=== PATIENT | female | born 1955 | race Caucasian/White ===

== ENCOUNTER 2016-11-07 09:20 | Day surgery (SDC) | payer MEDICARE, OTHER ==
[~2016-11-07 09:20] MED LIST: PROPOFOL INJ 200 MG/20 ML VIAL IV ONE
[2016-11-07] MEDS ORDERED: ACETAMINOPHEN 325 MG TABLET ONE (10:54)
[2016-11-07 11:02] VITALS: BP 110/67
--- NOTE | 2016-11-07 13:40 | Operative Report ---
Operative Report DATE OF SURGERY: 11/07/16 Operative Report: The risks, benefits and alternatives of the procedure including risks of bleeding, perforation requiring surgery are explained to the patient detail and informed consent was obtained. Patient was taken to the endoscopy suite and placed in the left, lateral decubital position. Timeout was called. Propofol medications administered. A rectal examination was done which did not reveal any masses, tears or fissures. An Olympus videoscope was inserted into the patient's rectum. The scope was then carefully guided all the way to the cecum. Cecum was identified by the usual anatomical landmarks of the ileocecal valve as well as the appendiceal office. Photodocumentation is obtained. Prep is good. The scope was then sequentially pulled back via the various segments of the colon including the ascending colon, hepatic flexure, transverse colon, splenic flexure, descending colon finding to the rectosigmoid portions of the colon. Retroflexion maneuver was performed. The risks benefits and alternatives of the procedure explained to the patient in detail and informed consent is obtained.A GIF Olympus video scope was inserted into the patient's mouth and hypopharynx, the esophagus is identified intubated and insufflated, the scope was then advanced through the esophagus stomach and duodenum, retroflexion maneuver is done, the esophagus stomach and first and second portions of the duodenum examined PREOPERATIVE DIAGNOSIS: Change of bowel habits. Chronic constipation rule out obstruction. Gastroesophageal reflux disease POSTOPERATIVE DIAGNOSIS: Redundant colon. Mild right side inflammation of the colon status post biopsy. Internal hemorrhoids. Gastritis status post biopsy rule out Helicobacter pylori OPERATION: Colonoscopy with biopsy. EGD with biopsy SURGEON: FIGUEROA GONSALES ANESTHESIA: LMAC TISSUE REMOVED OR ALTERED: As described above. COMPLICATIONS: None. ESTIMATED BLOOD LOSS: None. INTRAOPERATIVE FINDINGS: No obstruction noted. Promotility is likely the issue causing her chronic constipation. She appears to be doing better on Linzess PROCEDURE: Patient tolerated procedure well. No immediate postprocedure complications are noted. Patient discharged in good condition. Discharge date 11/07/2016. Discharge diet: Regular. Discharge activity: Regular. 2-3 week follow-up to discuss findings. Patient is instructed to call the office or proceed to the emergency room should there be any further problems or questions. We will wait on pathology.
== END 2016-11-07 11:05 | disposition home or self-care (01) ==
LOC: END 09:20
PROVIDERS: ATTEND Internal Medicine Gastroenterology
PROC: 0DB68ZX Excision of Stomach, Via Natural or Artificial Opening Endoscopic, Diagnostic (ICD-10-PCS; principal; 2016-11-07 11:00)
PROC: 0DBF8ZX Excision of Right Large Intestine, Via Natural or Artificial Opening Endoscopic, Diagnostic (ICD-10-PCS; 2016-11-07 11:00)
DX: K58.1 Irritable bowel syndrome with constipation (principal); K64.8 Other hemorrhoids; K29.50 Unspecified chronic gastritis without bleeding; K21.9 Gastro-esophageal reflux disease without esophagitis; M81.0 Age-related osteoporosis without current pathological fracture; K44.9 Diaphragmatic hernia without obstruction or gangrene; Z87.440 Personal history of urinary (tract) infections; Z79.899 Other long term (current) drug therapy
CPT/HCPCS: 43239; 45380; 88342 ×2; 88305 ×2; A9270; J2704; 810

== ENCOUNTER 2017-10-17 01:26 | Emergency (ER) | payer MEDICARE, OTHER ==
[2017-10-17 02:50] LABS: ABSOLUTE EOSINOPHILS # (AUTO) 0.1 10^3/uL (0.0-0.6); ABSOLUTE LYMPHOCYTES (AUTO) 0.9 10^3/uL (0.5-4.7); ABSOLUTE MONOCYTES (AUTO) 0.6 10^3/uL (0.1-1.4); ABSOLUTE NEUT (AUTO) 8.7 10^3/uL (1.7-8.2); BASOPHILS % (AUTO) 0.3 % (0-2); EOSINOPHILS % (AUTO) 0.6 % (0-6); HEMOGLOBIN 12.7 g/dL (12.0-15.5); LYMPHOCYTES % (AUTO) 8.4 % (13-45); MEAN CORPUSCULAR HEMOGLOBIN 31.7 pg (27.0-33.4); MEAN CORPUSCULAR HGB CONC 35.3 g/dL (32.0-36.0); MEAN CORPUSCULAR VOLUME 90 fl (80-97); MONOCYTES % (AUTO) 5.7 % (3-13); PLATELET COUNT 282 10^3/uL (150-450); RED BLOOD COUNT 4.01 10^6/uL (3.72-5.28); RED CELL DISTRIBUTION WIDTH 12.9 % (11.5-14.0); TOTAL CELLS COUNTED % (AUTO) 100 %; WHITE BLOOD COUNT 10.2 10^3/uL (4.0-10.5)
[2017-10-17 03:06] LABS: ALANINE AMINOTRANSFERASE 35 U/L (9-52); ALBUMIN 3.7 g/dL (3.5-5.0); ALKALINE PHOSPHATASE 100 U/L (38-126); ANION GAP 10 (5-19); ASPARTATE AMINO TRANSFERASE 31 U/L (14-36); BILIRUBIN,DIRECT 0.3 mg/dL (0.0-0.4); BILIRUBIN,TOTAL 0.4 mg/dL (0.2-1.3); BLOOD UREA NITROGEN 12 mg/dL (7-20); CALCIUM 8.9 mg/dL (8.4-10.2); CARBON DIOXIDE 25 mmol/L (22-30); CHLORIDE 102 mmol/L (98-107); GLUCOSE 104 mg/dL (75-110); POTASSIUM 4.2 mmol/L (3.6-5.0)
[2017-10-17] MEDS ORDERED: ACETAMINOPHEN 325 MG TABLET PO ONE (03:26)
[2017-10-17] MEDS ORDERED: METOCLOPRAMIDE HCL INJ/PF 10 MG/2 ML SDV IV ONE (03:26)
[2017-10-17] MEDS ORDERED: MECLIZINE HCL 25 MG TABLET PO ONE (03:27)
--- NOTE | 2017-10-17 03:29 | ER Document Report ---
ED General - General Chief Complaint: Nausea/Vomiting Stated Complaint: NAUSEA Time Seen by Provider: 10/17/17 03:15 Mode of Arrival: Medic Information source: Patient, Relative Notes: 62-year-old female presents emergency department with complaints of vertigo. Patient states that she was sleeping when she woke up she felt a spinning sensation. Patient has had this in the past. Patient states that she has Zofran and meclizine at home. Patient took some Zofran but was unable to keep the meclizine down. Patient states that the spinning is worse with movement. She denies any alleviating factors. She denies any vision changes, speech changes, numbness, tingling, weakness. Patient denies a history of any recent viral illness. She states that she has had some tinnitus intermittently over the last week. TRAVEL OUTSIDE OF THE [place] IN LAST 30 DAYS: No - HPI Onset: Just prior to arrival Onset/Duration: Sudden Quality of pain: No pain Pain Level: Denies Associated symptoms: Nausea, Vomiting Exacerbated by: Movement Relieved by: Denies Similar symptoms previously: Yes Recently seen / treated by doctor: No - Related Data Allergies/Adverse Reactions: amoxicillin [From Augmentin] Allergy (Verified 11/07/16 09:23) SHORTNESS OF BREATH, RASH ON HANDS cephalexin [From Keflex] Allergy (Verified 11/07/16 09:23) LIPS SWELL clavulanic acid [From Augmentin] Allergy (Verified 11/07/16 09:23) SHORTNESS OF BREATH, RASH ON HANDS codeine Allergy (Verified 11/07/16 09:23) AGRESSIVE BEHAVIOR meperidine [From Demerol] Allergy (Verified 11/07/16 09:23) WHELTS Penicillins Allergy (Verified 11/07/16 09:23) Anaphylaxis rosuvastatin [From Crestor] Allergy (Verified 11/07/16 09:23) Shortness of Breath tetracycline Allergy (Verified 11/07/16 09:23) LIPS,RASH BETA BLOCKERS Allergy (Uncoded 11/07/16 09:23) HYPOTENSION, DEPRESSION IVP DYE Allergy (Uncoded 11/07/16 09:23) Anaphylaxis Past Medical History - Social History Smoking Status: Current Some Day Smoker Family History: Reviewed & Not Pertinent - Past Medical History Cardiac Medical History: Denies: Hx Coronary Artery Disease, Hx Heart Attack, Hx Hypertension Pulmonary Medical History: Reports: Hx Pneumonia Denies: Hx Asthma, Hx Bronchitis, Hx COPD Neurological Medical History: Reports: Hx Seizures - FEBRILE @ 5 Y.O.. Denies: Hx Cerebrovascular Accident Musculoskeltal Medical History: Denies Hx Arthritis - Immunizations Hx Diphtheria, Pertussis, Tetanus Vaccination: Yes - 2013 Review of Systems - Review of Systems Constitutional: No symptoms reported EENT: Vertigo Cardiovascular: No symptoms reported Respiratory: No symptoms reported Gastrointestinal: Nausea, Vomiting Genitourinary: No symptoms reported Female Genitourinary: No symptoms reported Musculoskeletal: No symptoms reported Skin: No symptoms reported Hematologic/Lymphatic: No symptoms reported Neurological/Psychological: No symptoms reported -: Yes All other systems reviewed and negative Physical Exam - Vital signs Vitals: Temp Pulse Resp BP 97.1 F 72 20 106/61 10/17/17 02:00 10/17/17 02:00 10/17/17 02:00 10/17/17 02:00 Interpretation: Normal - Notes Notes: PHYSICAL EXAMINATION: GENERAL: Well-appearing, well-nourished and in no acute distress. HEAD: Atraumatic, normocephalic. EYES: Pupils equal round and reactive to light, extraocular movements intact, conjunctiva are normal. No nystagmus. ENT: Nares patent, oropharynx clear without exudates. Moist mucous membranes. NECK: Normal range of motion, supple without lymphadenopathy LUNGS: Breath sounds clear to auscultation bilaterally and equal. No wheezes rales or rhonchi. HEART: Regular rate and rhythm without murmurs ABDOMEN: Soft, nontender, nondistended abdomen. No guarding, no rebound. No masses appreciated. Female : deferred Musculoskeletal: Normal range of motion, no pitting or edema. No cyanosis. NEUROLOGICAL: Cranial nerves grossly intact. Normal speech. Normal sensory, motor exams. PSYCH: Normal mood, normal affect. SKIN: Warm, Dry, normal turgor, no rashes or lesions noted. Course - Re-evaluation Re-evalutation: 10/17/17 05:20 Vertigo worse with moving head from left to right. No nystagmus. No neuro deficits appreciated. Patient given Tylenol, meclizine, Reglan. On reevaluation , patient states that her vertigo has resolved. Patient is neurologically intact. Patient has no complaints at this time. I instructed the patient to follow-up with her primary care physician this week, to take [id number] medications as needed for symptom relief, and to return to the emergency department for any worsening symptoms. Patient is agreeable with plan of care. - Vital Signs Vital signs: Temp Pulse Resp BP Pulse Ox 97.1 F 72 20 106/61 10/17/17 02:00 10/17/17 02:00 10/17/17 02:00 10/17/17 02:00 - Laboratory Result Diagrams: 10/17/17 02:35 10/17/17 02:35 Laboratory results interpreted by me: 10/17/17 10/17/17 10/17/17 02:35 02:35 03:59 Seg Neutrophils % 85.0 H Lymphocytes % 8.4 L Absolute Neutrophils 8.7 H Total Protein 6.0 L Urine Ketones TRACE H Urine Blood SMALL H Ur Leukocyte Esterase TRACE H Discharge - Discharge Clinical Impression: Vertigo Condition: Stable Disposition: HOME, SELF-CARE Instructions: Vertigo ([facility]) Prescriptions: Meclizine HCl [Antivert 25 mg Tablet] 25 mg PO TID PRN #21 tablet PRN Reason: Ondansetron [Zofran Odt 4 mg Tablet] 1 tab PO Q4H PRN #15 tab.rapdis PRN Reason: For Nausea/Vomiting Referrals: SHOLA MITCHELL DO [Primary Care Provider] - Follow up as needed
[2017-10-17 04:15] LABS: APPEARANCE,URINE CLEAR; BILIRUBIN,URINE NEGATIVE (NEGATIVE); COLOR,URINE YELLOW; GLUCOSE, URINE NEGATIVE (NEGATIVE); KETONES,URINE TRACE mg/dL (NEGATIVE); LEUKOCYTE ESTERASE,URINE TRACE (NEGATIVE); NITRITE,URINE NEGATIVE (NEGATIVE); PROTEIN,URINE NEGATIVE (NEGATIVE); URINE SPECIFIC GRAVITY 1.008; UROBILINOGEN,URINE NEGATIVE mg/dL (<2.0)
[2017-10-17 05:41] VITALS: BP 110/66
== END 2017-10-17 05:41 | disposition home or self-care (01) ==
LOC: ER 01:26
DX: R42 Dizziness and giddiness (principal); R11.2 Nausea with vomiting, unspecified; H93.19 Tinnitus, unspecified ear; F17.200 Nicotine dependence, unspecified, uncomplicated; Z88.1 Allergy status to other antibiotic agents; Z88.5 Allergy status to narcotic agent; Z88.8 Allergy status to other drugs, medicaments and biological substances; Z87.892 Personal history of anaphylaxis; Z88.0 Allergy status to penicillin; Z91.041 Radiographic dye allergy status
CPT/HCPCS: 99284; 96374; 36415; 85025; 80053; 81001; A9270; J2765

== ENCOUNTER → 2018-03-19 | Outpatient (CLI) | payer MEDICARE, OTHER ==
--- NOTE | 2018-03-19 10:47 | WOMENS IMAGING REPORT ---
EXAM DESCRIPTION: BONE DENSITY HIP/SPINE COMPLETED DATE/TIME: 03/19/2018 10:23 am REASON FOR STUDY: N95.8 OTHER SPECIFIED MENOPAUSAL AND PERIMENOPAUSAL DISORDERS Z12.31 ENCNICOLER RAJ N MAMMOGRAM FOR MALIGNANT NEOPLASM OF PATRICIO M81.0 AGE-RELATED OSTEOPOROSIS W/O CURRENT PATHOLOGICAL FR AC N95.8 OTHER SPECIFIED MENOPAUSAL AND PERIMENOPAUSAL DISORDER COMPARISON: 01/17/2016 TECHNIQUE: Dual-Energy X-ray Absorptiometry (DEXA) of the AP Spine and Hip. LIMITATIONS: None. FINDINGS: LUMBAR SPINE: The bone mineral density (BMD) measured from L1-L4 in the AP projection correlates with a T-score of -3.7, which is osteoporosis as defined by the World Health Organization. +1.4% change since prior st udy. HIP: The bone mineral density (BMD) measured in the left hip correlates with a T-score of -2.9 in the femo ral neck, which is osteoporosis as defined by the World Health Organization. -8.3% change since prio r study. IMPRESSION: 1. LUMBAR SPINE: OSTEOPOROSIS. 2. HIP: OSTEOPOROSIS. COMMENT: The World Health Organization defines low BMD as follows: T-score: Normal: Greater than -1.0 Osteopenia: Between -1.0 and -2.5 Osteoporosis: Less than -2.5 without fractures Established osteoporosis: Less than -2.5 with fractures In general, you may wish to consider: Diagnosis Treatment Follow-up DEXA Normal BMD Prevention 2-3 years Osteopenia Prevention/Therapy 1-2 years Osteoporosis Therapy Yearly TECHNICAL DOCUMENTATION: JOB ID: [id number] [employer]- All Rights Reserved Reading location - IP/workstation name: [email or web address]
--- NOTE | 2018-03-20 16:26 | WOMENS IMAGING REPORT ---
EXAM DESCRIPTION: 3D SCREENING MAMMO BILAT COMPLETED DATE/TIME: 03/19/2018 10:23 am REASON FOR STUDY: Z12.31 SCREENING MAMMO Z12.31 ENCNTR SCREEN MAMMOGRAM FOR MALIGNANT NEOPLASM OF B RE M81.0 AGE-RELATED OSTEOPOROSIS W/O CURRENT PATHOLOGICAL FRAC N95.8 OTHER SPECIFIED MENOPAUSAL AN D PERIMENOPAUSAL DISORDER COMPARISON: 03/18/2016 TECHNIQUE: Standard craniocaudal and mediolateral oblique views of each breast recorded using digita l acquisition and breast tomosynthesis. LIMITATIONS: None. FINDINGS: No masses, calcifications or architectural distortion. No areas of suspicion. Read with the assistance of CAD. .[facility] - R2 Cenova Version 1.3 .[facility] - R2 Cenova Version 1.3 .[facility] - R2 Cenova Version 2.4 .[facility] - R2 Cenova Version 2.4 .[facility] - R2 Survey Director Version 9.2 IMPRESSION: NORMAL MAMMOGRAM. BIRADS 1. BREAST DENSITY: b. There are scattered areas of fibroglandular density. BIRAD: 1 NEGATIVE RECOMMENDATION: ROUTINE SCREENING Please continue yearly bilateral screening tomosynthesis/mammography March 2019 COMMENT: The patient has been notified of the results by letter per SA requirements. Additional no tification policies are in place for contacting patient with suspicious or incomplete findings. Quality ID #[id number]: The [employer] recommends an annual screening mammogram for women aged 40 years or over. This facility utilizes a reminder system to ensure that all patients receive reminder letters, and/or direct phone calls for appointments. This includes reminders for routine scr eening mammograms, diagnostic mammograms, or other Breast Imaging Interventions when appropriate. Th is patient will be placed in the appropriate reminder system. The [employer] (ACR) has developed recommendations for screening MRI of the breast s in certain patient populations, to be used in conjunction with mammography. Breast MRI surveillanc e may be appropriate for women with more than 20% lifetime risk of developing breast cancer as deter mined by genetic testing, significant family history of the disease, or history of mantle radiation f or Hodgkins Disease. ACR Practice Guidelines 2008. DBT Technology DBT is a type of tomographic mammography. With conventional mammography, overlapping breast tissue ma y make lesions difficult to detect, even with good compression. DBT uses an x-ray tube that rotates a round the breast, taking images at different angles. These images are then combined to create thin sl ices of the breast that the radiologist can view as a 3D reconstruction. The Hologic unit can perform full-field digital mammograms (2D imaging); or DBT (3D imaging); or both, in a combination mode that quickly performs both the mammogram and the tomosynthesis scan while the breast is still compressed. PQRS 6045F: Fluoroscopic imaging is not utilized for breast tomosynthesis. TECHNICAL DOCUMENTATION: FINDING NUMBER: (1) ASSESSMENT: (1) JOB ID: [id number] [employer]- All Rights Reserved Reading location - IP/workstation name: [email or web address]
== END ==
LOC: WI 09:05
PROVIDERS: ATTEND Student in an Organized Health Care Education/Training Program
DX: Z12.31 Encounter for screening mammogram for malignant neoplasm of breast (principal); N95.8 Other specified menopausal and perimenopausal disorders
CPT/HCPCS: 77063; 77067; 77080

== ENCOUNTER → 2018-06-28 | Outpatient (CLI) | payer MEDICARE, OTHER ==
--- NOTE | 2018-06-28 12:48 | RADIOLOGY REPORT (SQ) ---
EXAM DESCRIPTION: U/S ABDOMEN LIMITED W/O DOP COMPLETED DATE/TIME: 06/28/2018 9:39 am REASON FOR STUDY: EPIGASTRIC ABDOMINAL TENDERNESS;RIGHT UPPER QUADRA R10.816 EPIGASTRIC ABDOMINAL T ENDERNESS R10.811 RIGHT UPPER QUADRANT ABDOMINAL TENDERNESS R11.0 NAUSEA COMPARISON: None. TECHNIQUE: Dynamic and static grayscale images acquired of the abdomen and recorded on PACS. Additio nal selected color Doppler and spectral images recorded. LIMITATIONS: Limited visualization. Poor acoustical window FINDINGS: PANCREAS: No masses. Visualized pancreatic duct normal caliber. LIVER: Normal size Echo texture normal. No focal masses. LIVER VASCULATURE: Normal directional flow of the main portal vein and hepatic veins. GALLBLADDER: Surgically absent. ULTRASOUND-DETECTED HOOKS'S SIGN: Not applicable. INTRAHEPATIC DUCTS AND COMMON DUCT: CBD and intrahepatic ducts normal caliber. No filling defects. INFERIOR VENA CAVA: Normal flow. AORTA: No aneurysm. RIGHT KIDNEY: Normal size. Normal echogenicity. No solid or suspicious masses. No hydronephros is. No calcifications. PERITONEAL AND RIGHT PLEURAL SPACE: No ascites or effusions. OTHER: No other significant findings. IMPRESSION: GALLBLADDER ABSENT. OTHERWISE NORMAL RUQ US VISUALIZED TECHNICAL DOCUMENTATION: JOB ID: [id number] [email or web address]- All Rights Reserved Reading location - IP/workstation name: [email or web address]
== END ==
LOC: WI 08:52
PROVIDERS: ATTEND Internal Medicine Gastroenterology
DX: R10.816 Epigastric abdominal tenderness (principal); R10.811 Right upper quadrant abdominal tenderness; R11.0 Nausea
CPT/HCPCS: 76705

== ENCOUNTER → 2018-06-29 | Outpatient (CLI) | payer MEDICARE, OTHER | LOC: OD 11:38 | PROVIDERS: ATTEND Otolaryngology | DX: J30.2 Other seasonal allergic rhinitis (principal) | CPT/HCPCS: 36415; 82785; 86003 ==

== ENCOUNTER → 2018-07-25 | Outpatient (CLI) | payer MEDICARE, OTHER ==
--- NOTE | 2018-07-25 14:20 | RADIOLOGY REPORT (SQ) ---
EXAM DESCRIPTION: CT ABD/PELVIS ORAL ONLY COMPLETED DATE/TIME: 07/25/2018 1:07 pm REASON FOR STUDY: ABD TENDERNESS; RUQ (R10.811) R10.811 RIGHT UPPER QUADRANT ABDOMINAL TENDERNESS M 54.2 CERVICALGIA R42 DIZZINESS AND GIDDINESS COMPARISON: None. TECHNIQUE: CT scan of the abdomen and pelvis performed without intravenous contrast. Oral contrast was given. Images reviewed with lung, soft tissue, and bone windows. Reconstructed coronal and sagitt al MPR images reviewed. All images stored on PACS. All CT scanners at this facility use dose modulation, iterative reconstruction, and/or weight based d osing when appropriate to reduce radiation dose to as low as reasonably achievable (ALARA). [facility]: Dose Right [facility]: CareDose [facility]: Dose Right [facility]: Teradose 4D [facility]: [employer] RADIATION DOSE: CT Rad equipment meets quality standard of care and radiation dose reduction techniq ues were employed. CTDIvol: 4.1 mGy. DLP: 201 mGy-cm.mGy. LIMITATIONS: None. FINDINGS: LOWER CHEST: No significant findings. No nodules or infiltrates. NON-CONTRASTED LIVER, SPLEEN, ADRENALS: Evaluation limited by lack of IV contrast. No identified sign ificant masses. Findings suggestive of left hepatic lobe biliary ductal dilatation. PANCREAS: No masses. No peripancreatic inflammatory changes. GALLBLADDER: Surgically absent. RIGHT KIDNEY AND URETER: No suspicious masses. Assessment limited by lack of IV contrast. No signif icant calcifications. No hydronephrosis or hydroureter. LEFT KIDNEY AND URETER: No suspicious masses. Assessment limited by lack of IV contrast. No signifi cant calcifications. No hydronephrosis or hydroureter. AORTA AND RETROPERITONEUM: No aneurysm. No retroperitoneal masses or adenopathy. BOWEL AND PERITONEAL CAVITY: No focal bowel wall thickening. No evidence of intestinal obstruction. Stool throughout the colon. APPENDIX: Not visualized. . PELVIS, BLADDER, AND ABDOMINAL WALL:No abnormal masses. No free fluid. Bladder normal. Status post h ysterectomy. BONES: Decreased mineralization. No acute bony abnormality. OTHER: No other significant finding. IMPRESSION: 1. Findings suggestive of left hepatic lobe biliary ductal dilatation although evaluati on limited secondary to lack of intravenous contrast. Recommend correlation with LFTs. Ultrasound c ould be considered for further evaluation. 2. No additional evidence of acute intra-abdominal/pelvic process. COMMENT: Quality ID # [id number]: Final reports with documentation of one or more dose reduction techniques (e.g., Automated exposure control, adjustment of the mA and/or kV according to patient size, use of iterative reconstruction technique) TECHNICAL DOCUMENTATION: JOB ID: [id number] [employer]- All Rights Reserved Reading location - IP/workstation name: [email or web address]
--- NOTE | 2018-07-25 16:16 | RADIOLOGY REPORT (SQ) ---
EXAM DESCRIPTION: MRI CERVICAL SPINE WITHOUT COMPLETED DATE/TIME: 07/25/2018 1:51 pm REASON FOR STUDY: DIZZINESS AND GIDDINESS (R42), CERVICALGIA (M54.2) R10.811 RIGHT UPPER QUADRANT A BDOMINAL TENDERNESS M54.2 CERVICALGIA R42 DIZZINESS AND GIDDINESS COMPARISON: None. TECHNIQUE: Sagittal and Axial imaging includes T1, T2, STIR and gradient echo sequences. LIMITATIONS: None. FINDINGS: ALIGNMENT: Normal. VERTEBRAE: Intact. BONE MARROW: Normal. No marrow replacement or reactive changes. DISCS: Normal. No significant abnormal signal or loss of height. HARDWARE: None in the spine. CORD AND BASE OF BRAIN: Normal in size and signal intensity. SOFT TISSUES: No soft tissue masses. C1-C2: No significant spinal stenosis. C2-C3: No significant spinal stenosis or exit foraminal stenosis. C3-C4: No significant spinal stenosis or exit foraminal stenosis. C4-C5: No significant spinal stenosis or exit foraminal stenosis. C5-C6: No significant spinal stenosis or exit foraminal stenosis. C6-C7: There is a shallow slightly eccentric to the left central disc/ osteophyte complex. This slig htly narrows the anterior CSF space but does not deform the spinal cord. There is no central canal o r foraminal stenosis. C7-T1: No significant spinal stenosis or exit foraminal stenosis. UPPER THORACIC: Incompletely imaged. No significant spinal stenosis or exit foraminal stenosis. OTHER: No other significant finding. IMPRESSION: There is a shallow disc/osteophyte complex at C6-7 with no central canal or foraminal st enosis. No other significant findings. TECHNICAL DOCUMENTATION: JOB ID: [id number] [employer]- All Rights Reserved Reading location - IP/workstation name: [email or web address]
--- NOTE | 2018-07-26 08:41 | RADIOLOGY REPORT (SQ) ---
EXAM DESCRIPTION: CT SINUSES FOR ENT COMPLETED DATE/TIME: 07/25/2018 1:07 pm REASON FOR STUDY: DEVIATED SEPTUM (J34.2) R10.811 RIGHT UPPER QUADRANT ABDOMINAL TENDERNESS M54.2 CERVICALGIA R42 DIZZINESS AND GIDDINESS COMPARISON: None. TECHNIQUE: Noncontrast scanning through the paranasal sinuses using bone algorithm. Reconstructed MPR images reviewed. All images stored on PACS. Images acquired for image guided surgery. All CT scanners at this facility use dose modulation, iterative reconstruction, and/or weight based d osing when appropriate to reduce radiation dose to as low as reasonably achievable (ALARA). [facility]: Dose Right [facility]: CareDose [facility]: Dose Right [facility]: Teradose 4D [facility]: [employer] RADIATION DOSE: 45.8 mGy. FINDINGS: NASAL PASSAGES: Clear. No polyps or masses. OSTEOMEATAL UNITS AND NASOFRONTAL DUCTS: Patent. Small bilateral agger nasi and Reggie cells. MAXILLARY SINUSES: Well-pneumatized and clear. Maxillary sinus outlets are patent. ETHMOID SINUSES: Well-pneumatized and clear. SPHENOID SINUSES: Well-pneumatized and clear. No sphenoethmoid air cells. Right pneumatized pterygoi d recess. No pneumatized dorsal sella. FRONTAL SINUSES: Well-pneumatized and clear. Partial pneumatization of the roof of the left orbit on coronal reconstruction image 88 MASTOID AIR CELLS: Clear. ORBITS: Normal and symmetrical. NASAL SEPTUM: Midline. No nasal septal spurs. TEMPOROMANDIBULAR JOINTS: Normal. TURBINATES: Bilateral pneumatized middle turbinates. MUCOPERIOSTEAL THICKENING: No. MUCOCELE: No. OTHER: No other significant findings. IMPRESSION: NO EVIDENCE OF ACUTE SINUSITIS. TECHNICAL DOCUMENTATION: JOB ID: [id number] Quality ID # [id number]: Final reports with documentation of one or more dose reduction techniques (e.g., Au tomated exposure control, adjustment of the mA and/or kV according to patient size, use of iterative reconstruction technique) 2010 [employer]- All Rights Reserved Reading location - IP/workstation name: [email or web address]-
== END ==
LOC: RAD 12:37
PROVIDERS: ATTEND Internal Medicine Gastroenterology
DX: M54.2 Cervicalgia (principal); R10.811 Right upper quadrant abdominal tenderness; R10.816 Epigastric abdominal tenderness; R94.5 Abnormal results of liver function studies; R42 Dizziness and giddiness
CPT/HCPCS: 70486; 72141; 74176

== ENCOUNTER → 2018-09-27 | Outpatient (CLI) | payer MEDICARE, OTHER ==
--- NOTE | 2018-09-27 13:37 | RADIOLOGY REPORT (SQ) ---
EXAM DESCRIPTION: MRI ABDOMEN WITHOUT COMPLETED DATE/TIME: 09/27/2018 10:52 am REASON FOR STUDY: K87 DISORD OF GB, BILIARY TRAC AND PANCREAS IN DIS CLASSD [id number] K87 DISORD OF GB , BILIARY TRAC AND PANCREAS IN DIS CLASSD EL R93.2 ABNORMAL FINDINGS ON DX IMAGING OF LIVER AND BILI EDWIN T COMPARISON: CT abdomen pelvis 07/25/2018 Abdominal ultrasound 06/28/2018 TECHNIQUE: Noncontrast MRCP. Source and MIP images reviewed. LIMITATIONS: None. FINDINGS: GALLBLADDER: Surgically absent INTRAHEPATIC DUCTS: Nondilated. EXTRAHEPATIC DUCTS: Common duct is normal caliber, about 6 mm in diameter. This is similar compared to prior ultrasound 06/28/2018 and exam 07/15/2018. No dilatation of the pancreatic duct. No ductal fi lling defects noted. PANCREAS: Generally homogeneous, no gross mass or significant signal alteration. No surrounding infl ammatory changes or fluid. Pancreatic duct is normal. LIVER, SPLEEN, KIDNEYS, ADRENALS: No significant abnormality. VESSELS: No evidence of aneurysm. Grossly appropriate flow voids in the major vascular structures. LUNG BASES: Grossly clear. OTHER: No other significant finding. IMPRESSION: Post cholecystectomy. No intrahepatic or extrahepatic biliary ductal dilatation. No ductal filling defects worrisome for r etained stone. No pancreatic ductal dilatation or peripancreatic inflammatory change. TECHNICAL DOCUMENTATION: JOB ID: [id number] [employer]- All Rights Reserved Reading location - IP/workstation name: [email or web address]
== END ==
LOC: RAD 09:52
PROVIDERS: ATTEND Internal Medicine Gastroenterology
DX: K87 Disorders of gallbladder, biliary tract and pancreas in diseases classified elsewhere (principal); R93.2 Abnormal findings on diagnostic imaging of liver and biliary tract
CPT/HCPCS: 74181

== ENCOUNTER → 2019-03-28 | Outpatient (CLI) | payer MEDICARE, OTHER ==
--- NOTE | 2019-03-28 17:53 | WOMENS IMAGING REPORT ---
EXAM DESCRIPTION: 3D SCREENING MAMMO BILAT COMPLETED DATE/TIME: 03/28/2019 9:25 am REASON FOR STUDY: Z12.31 SCREENING MAMMO Z12.31 ENCNTR SCREEN MAMMOGRAM FOR MALIGNANT NEOPLASM OF B RE COMPARISON: 2015, 2017 EXAM PARAMETERS: Views: Standard craniocaudal and mediolateral oblique views of each breast recorded using digital acquisition and breast tomosynthesis. Read with the assistance of CAD. .[facility] - R2 Risk Control Officer Version 9.2 LIMITATIONS: None. FINDINGS: No suspicious masses, suspicious calcifications or architectural distortion. No areas of c oncern. IMPRESSION: NEGATIVE MAMMOGRAM. BIRADS 1. BREAST DENSITY: b. There are scattered areas of fibroglandular density. BIRAD: ASSESSMENT: 1 NEGATIVE RECOMMENDATION: ROUTINE SCREENING Please continue yearly bilateral screening mammography/tomosynthesis in March 2020. COMMENT: The patient has been notified of the results by letter per [place] requirements. Additional no tification policies are in place for contacting patient with suspicious or incomplete findings. Quality ID #[id number]: The [employer] recommends an annual screening mammogram for women aged 40 years or over. This facility utilizes a reminder system to ensure that all patients receive reminder letters, and/or direct phone calls for appointments. This includes reminders for routine scr eening mammograms, diagnostic mammograms, or other Breast Imaging Interventions when appropriate. Th is patient will be placed in the appropriate reminder system. TECHNICAL DOCUMENTATION: FINDING NUMBER: (1) ASSESSMENT: (1) JOB ID: [id number] [employer]- All Rights Reserved Reading location - IP/workstation name: [email or web address]
== END ==
LOC: WI 08:50
PROVIDERS: ATTEND Nurse Practitioner Family
DX: Z12.31 Encounter for screening mammogram for malignant neoplasm of breast (principal)
CPT/HCPCS: 77063; 77067

== ENCOUNTER 2019-04-14 10:38 | Emergency (ER) | payer MEDICARE, OTHER ==
[2019-04-14] MEDS ORDERED: IBUPROFEN 600 MG TABLET PO ONE (11:45)
[2019-04-14] MEDS ORDERED: HYDROCODONE/ACETAMINOPHEN 5-325 MG TABLET PO ONE ×2 (11:45→13:49)
--- NOTE | 2019-04-14 11:49 | ER Document Report ---
ED Medical Screen (RME) - General Chief Complaint: Leg Injury Stated Complaint: FALL/LEG INJURY Time Seen by Provider: 04/14/19 11:38 Primary Care Provider: YOLANDA CAMPUZANO FNP-C [Primary Care Provider] - Follow up as needed Notes: Patient is a 63-year-old female who presents to the emergency department with 2 complaints. Her first complaint is that she fell yesterday and has not been able to bear weight since then. She took her pain medicine at 3:00 this morning, but has had little relief of her symptoms. Patient also has had a cough since yesterday. She states that she thinks she has the flu. Exam: Very tender to the right hip, right knee, right ankle, and right foot. I have greeted and performed a rapid initial assessment of this patient. A comprehensive ED assessment and evaluation of the patient, analysis of test results and completion of medical decision making process will be conducted by an additional ED providers. TRAVEL OUTSIDE OF THE [place] IN LAST 30 DAYS: No - Related Data Allergies/Adverse Reactions: amoxicillin [From Augmentin] Allergy (Verified 05/30/18 13:16) SHORTNESS OF BREATH, RASH ON HANDS cephalexin [From Keflex] Allergy (Verified 05/30/18 13:16) LIPS SWELL clavulanic acid [From Augmentin] Allergy (Verified 05/30/18 13:16) SHORTNESS OF BREATH, RASH ON HANDS codeine Allergy (Verified 05/30/18 13:16) AGRESSIVE BEHAVIOR meperidine [From Demerol] Allergy (Verified 05/30/18 13:16) WHELTS Penicillins Allergy (Verified 05/30/18 13:16) Anaphylaxis rosuvastatin [From Crestor] Allergy (Verified 05/30/18 13:16) Shortness of Breath Sulfa (Sulfonamide Antibiotics) Allergy (Verified 04/14/19 11:47) Lips swelled tetracycline Allergy (Verified 05/30/18 13:16) LIPS,RASH BETA BLOCKERS Allergy (Uncoded 05/30/18 13:16) HYPOTENSION, DEPRESSION IVP DYE Allergy (Uncoded 05/30/18 13:16) Anaphylaxis Past Medical History - Past Medical History Cardiac Medical History: Denies: Hx Coronary Artery Disease, Hx Heart Attack, Hx Hypertension Pulmonary Medical History: Reports: Hx Pneumonia - AGE 7 Denies: Hx Asthma, Hx Bronchitis, Hx COPD Neurological Medical History: Denies: Hx Cerebrovascular Accident, Hx Seizures Renal/ Medical History: Denies: Hx Peritoneal Dialysis Musculoskeltal Medical History: 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
[2019-04-14 12:27] LABS: A TYPE INFLUENZA AG NEGATIVE (NEGATIVE); B INFLUENZA AG NEGATIVE (NEGATIVE)
--- NOTE | 2019-04-14 13:29 | RADIOLOGY REPORT (SQ) ---
EXAM DESCRIPTION: ANKLE RIGHT COMPLETE COMPLETED DATE/TIME: 04/14/2019 12:34 pm REASON FOR STUDY: fall/pain COMPARISON: Right foot three views same date NUMBER OF VIEWS: Three views. TECHNIQUE: AP, lateral, and oblique radiographic images acquired of the right ankle. LIMITATIONS: None. FINDINGS: MINERALIZATION: Normal. BONES: No acute fracture or dislocation. No worrisome bone lesions. JOINTS: No effusions. SOFT TISSUES: No soft tissue swelling. No foreign body. OTHER: No other significant finding. IMPRESSION: NEGATIVE STUDY OF THE RIGHT ANKLE. NO RADIOGRAPHIC EVIDENCE OF ACUTE INJURY. TECHNICAL DOCUMENTATION: JOB ID: [id number] [employer]- All Rights Reserved Reading location - IP/workstation name: [email or web address]
--- NOTE | 2019-04-14 13:30 | RADIOLOGY REPORT (SQ) ---
EXAM DESCRIPTION: FOOT RIGHT COMPLETE COMPLETED DATE/TIME: 04/14/2019 12:34 pm REASON FOR STUDY: fall/pain COMPARISON: Right ankle three views same date NUMBER OF VIEWS: Three views. TECHNIQUE: AP, lateral and oblique radiographic images acquired of the right foot. LIMITATIONS: None. FINDINGS: MINERALIZATION: Normal. BONES: No acute fracture or dislocation. No worrisome bone lesions. Small dorsal calcaneal spur JOINTS: No effusions. SOFT TISSUES: No soft tissue swelling. No foreign body. OTHER: No other significant finding. IMPRESSION: NEGATIVE STUDY OF THE RIGHT FOOT. NO RADIOGRAPHIC EVIDENCE OF ACUTE INJURY. TECHNICAL DOCUMENTATION: JOB ID: [id number] [employer]- All Rights Reserved Reading location - IP/workstation name: [email or web address]
--- NOTE | 2019-04-14 13:31 | RADIOLOGY REPORT (SQ) ---
EXAM DESCRIPTION: HIP RIGHT AP/LATERAL COMPLETED DATE/TIME: 04/14/2019 12:34 pm REASON FOR STUDY: fall/pain COMPARISON: None. NUMBER OF VIEWS: Two views. TECHNIQUE: AP pelvis and additional frog-leg view of the right hip. LIMITATIONS: Nonstandard radiographic positioning right frog-leg hip view FINDINGS: MINERALIZATION: Normal. RIGHT HIP: No fracture or dislocation. No worrisome bone lesions. LEFT HIP: No fracture or dislocation. No worrisome bone lesions. PUBIS AND ISCHIUM: No fracture. PELVIS: No fracture. SACRUM: No fracture or dislocation. No worrisome bone lesions. LOWER LUMBAR SPINE: No fracture or dislocation. No worrisome bone lesions. No significant disc disea se. SOFT TISSUES: No findings. OTHER: No other significant finding. IMPRESSION: NEGATIVE STUDY OF THE RIGHT HIP. NO RADIOGRAPHIC EVIDENCE OF ACUTE INJURY. COMMENT: The patient is unable to bear weight consider CT follow-up TECHNICAL DOCUMENTATION: JOB ID: [id number] [employer]- All Rights Reserved Reading location - IP/workstation name: [email or web address]
--- NOTE | 2019-04-14 13:34 | RADIOLOGY REPORT (SQ) ---
EXAM DESCRIPTION: KNEE RIGHT 4 VIEWS COMPLETED DATE/TIME: 04/14/2019 12:34 pm REASON FOR STUDY: fall/pain COMPARISON: None. NUMBER OF VIEWS: Four views. TECHNIQUE: AP, lateral, and both oblique radiographic images acquired of the right knee. LIMITATIONS: None. FINDINGS: MINERALIZATION: Normal. BONES: No acute fracture or dislocation. No worrisome bone lesions. JOINT: Large suprapatellar knee joint effusion. SOFT TISSUES: No soft tissue swelling. No radio-opaque foreign body. OTHER: No other significant finding. IMPRESSION: Large suprapatellar right knee joint effusion TECHNICAL DOCUMENTATION: JOB ID: [id number] [employer]- All Rights Reserved Reading location - IP/workstation name: [email or web address]
[2019-04-14] MEDS ORDERED: KETOROLAC TROMETHAMINE 60 MG/2 ML SDV IM ONE (13:49)
--- NOTE | 2019-04-14 14:00 | ER Document Report ---
ED Extremity Problem, Lower - General Chief Complaint: Fall Stated Complaint: FALL/LEG INJURY Time Seen by Provider: 04/14/19 11:38 Primary Care Provider: YOLANDA CAMPUZANO FNP-C [NO LOCAL MD] - Follow up as needed TRAVEL OUTSIDE OF THE [place] IN LAST 30 DAYS: No - HPI Notes: Patient presents with right knee pain. Patient states that she tripped over a bedspread last night and landed on her right side. She complains of severe pain in the right knee as well as the right ankle and right hip. This pain is worse with movement and better with rest. It does radiate up and down the right leg. It is severe and constant. It is a throbbing sharp pain. She denies any loss of consciousness. - Related Data Allergies/Adverse Reactions: amoxicillin [From Augmentin] Allergy (Verified 05/30/18 13:16) SHORTNESS OF BREATH, RASH ON HANDS cephalexin [From Keflex] Allergy (Verified 05/30/18 13:16) LIPS SWELL clavulanic acid [From Augmentin] Allergy (Verified 05/30/18 13:16) SHORTNESS OF BREATH, RASH ON HANDS codeine Allergy (Verified 05/30/18 13:16) AGRESSIVE BEHAVIOR meperidine [From Demerol] Allergy (Verified 05/30/18 13:16) WHELTS Penicillins Allergy (Verified 05/30/18 13:16) Anaphylaxis rosuvastatin [From Crestor] Allergy (Verified 05/30/18 13:16) Shortness of Breath Sulfa (Sulfonamide Antibiotics) Allergy (Verified 04/14/19 11:47) Lips swelled tetracycline Allergy (Verified 05/30/18 13:16) LIPS,RASH BETA BLOCKERS Allergy (Uncoded 05/30/18 13:16) HYPOTENSION, DEPRESSION IVP DYE Allergy (Uncoded 05/30/18 13:16) Anaphylaxis Home Medications: Patient has list with her Past Medical History - General Information source: Patient - Social History Smoking Status: Current Every Day Smoker Frequency of alcohol use: None Drug Abuse: None Family History: Reviewed & Not Pertinent Patient has suicidal ideation: No Patient has homicidal ideation: No - Past Medical History Cardiac Medical History: Denies: Hx Coronary Artery Disease, Hx Heart Attack, Hx Hypertension Pulmonary Medical History: Reports: Hx Pneumonia - AGE 7 Denies: Hx Asthma, Hx Bronchitis, Hx COPD Neurological Medical History: Denies: Hx Cerebrovascular Accident, Hx Seizures Renal/ Medical History: Denies: Hx Peritoneal Dialysis GI Medical History: Reports: Hx Gastroesophageal Reflux Disease, Hx Hiatal Hernia Musculoskeletal Medical History: Reports Hx Arthritis - RIGHT KNEE, BILATERAL KNUCKLES Past Surgical History: Reports: Hx Appendectomy, Hx Breast Surgery - augmentation, Hx Cholecystectomy, Hx Hysterectomy, Hx Vascular Surgery - vein ablation - Immunizations Hx Diphtheria, Pertussis, Tetanus Vaccination: Yes Review of Systems - Review of Systems Constitutional: denies: Chills, Fever Cardiovascular: denies: Chest pain, Palpitations Respiratory: denies: Cough, Short of breath -: Yes All other systems reviewed and negative Physical Exam - Vital signs Vitals: Temp Pulse Resp BP Pulse Ox 99.1 F 103 H 16 112/77 97 04/14/19 10:54 04/14/19 10:54 04/14/19 10:54 04/14/19 10:54 04/14/19 10:54 Interpretation: Normal - General General appearance: Appears well, Alert - HEENT Head: Normocephalic, Atraumatic Eyes: Normal Pupils: PERRL - Respiratory Respiratory status: No respiratory distress Chest status: Nontender Breath sounds: Normal Chest palpation: Normal - Cardiovascular Rhythm: Regular Heart sounds: Normal auscultation Murmur: No - Abdominal Inspection: Normal Distension: No distension Bowel sounds: Normal Tenderness: Nontender Organomegaly: No organomegaly - Back Back: Normal, Nontender - Extremities General upper extremity: Normal inspection, Nontender, Normal color, Normal ROM, Normal temperature General lower extremity: Other - Patient has a significantly large effusion of the right knee however it is not tense. Her right knee is diffusely tender to palpation. Dorsalis pedis pulse on the right is 2+. She has no obvious neurological deficits on the right lower extremity. She does have some significant adjacent swelling to the knee joint as well. There is no significant warmth or color change. Patient's right ankle has unremarkable inspection. However it is diffusely tender to palpation. Patient is unable to bear weight at this time.. No: Isreal's sign - Neurological Neuro grossly intact: Yes Cognition: Normal Orientation: AAOx4 [place] Coma Scale Eye Opening: Spontaneous [place] Coma Scale Verbal: Oriented [place] Coma Scale Motor: Obeys Commands [place] Coma Scale Total: 15 Speech: Normal Motor strength normal: LUE, RUE, LLE, RLE Sensory: Normal - Psychological Associated symptoms: Normal affect, Normal mood - Skin Skin Temperature: Warm Skin Moisture: Dry Skin Color: Normal Course - Vital Signs Vital signs: Temp Pulse Resp BP Pulse Ox 99.1 F 103 H 16 112/77 97 04/14/19 10:54 04/14/19 10:54 04/14/19 10:54 04/14/19 10:54 04/14/19 10:54 - Diagnostic Test Radiology reviewed: Image reviewed, Reports reviewed Procedures - Immobilization Right Knee Time completed: 13:57 Pre-Proc Neuro Vasc Exam: Normal Immobilizer type: Knee immobilizer Performed by: RN Post-Proc Neuro Vasc Exam: Normal Alignment checked and good: Yes Discharge - Discharge Clinical Impression: Acute internal derangement of right knee Knee contusion Qualifiers: Encounter type: initial encounter Laterality: right Qualified Code(s): S80.01XA - Contusion of right knee, initial encounter Condition: Stable Disposition: HOME, SELF-CARE Instructions: Suspected Internal Knee Injury ([facility]), Knee Effusion ([facility]), Knee Immobilizing Splint ([facility]) Additional Instructions: Please call Dr. Snow as soon as possible to arrange follow-up Prescriptions: Oxycodone HCl/Acetaminophen [Percocet 5-325 mg Tablet] 1 - 2 tab PO Q4H PRN 3 Days #15 tablet PRN Reason: Forms: Return to Work Referrals: BURT SNOW JR, DO [ACTIVE PROVISIONAL STAFF] - Follow up in 3-5 days
[2019-04-14 14:19] VITALS: BP 100/65
== END 2019-04-14 14:29 | disposition home or self-care (01) ==
LOC: ER 10:38
DX: S80.01XA Contusion of right knee, initial encounter (principal); M23.91 Unspecified internal derangement of right knee; W01.0XXA Fall on same level from slipping, tripping and stumbling without subsequent striking against object, initial encounter; F17.200 Nicotine dependence, unspecified, uncomplicated; Z88.0 Allergy status to penicillin; Z88.6 Allergy status to analgesic agent; Z88.2 Allergy status to sulfonamides; Z91.041 Radiographic dye allergy status; Z90.49 Acquired absence of other specified parts of digestive tract; Z90.710 Acquired absence of both cervix and uterus
CPT/HCPCS: 99283; 96372; 87804; 73610; 73630; 73502; 73564; L1830; J1885; A9270

== ENCOUNTER 2019-07-27 16:35 | Emergency (ER) | payer MEDICARE, OTHER ==
--- NOTE | 2019-07-27 16:52 | ER Document Report ---
ED Medical Screen (RME) - General Chief Complaint: Headache Stated Complaint: HEADACHE,VOMITING Time Seen by Provider: 07/27/19 16:50 Mode of Arrival: Ambulatory Information source: Patient Notes: 64-year-old female presented to ED for complaint of severe headache with nausea and vomiting since 7 AM this morning. She states last night she picked up a container and put it up on a shelf and this morning she woke up with pain in her neck head back with nausea and vomiting cannot keep anything down. She is alert oriented respirations regular nonlabored. She states she does have a history of PTSD, anxiety, panic attacks, elevated cholesterol, and migraines a long time ago. She states she has not had any migraines since she had a hysterectomy. She also has a history of cholecystectomy appendectomy and vein stripping. She states she is just getting over a UTI where she took antibiotics. She states she does use vapor cigarettes but does not smoke regular cigarettes. She lives alone with her family. She states her daughter brought her to the emergency room. I have greeted and performed a rapid initial assessment of this patient. A comprehensive ED assessment and evaluation of the patient, analysis of test results and completion of medical decision making process will be conducted by an additional ED providers. TRAVEL OUTSIDE OF THE [place] IN LAST 30 DAYS: No - Related Data Allergies/Adverse Reactions: amoxicillin [From Augmentin] Allergy (Verified 05/30/18 13:16) SHORTNESS OF BREATH, RASH ON HANDS cephalexin [From Keflex] Allergy (Verified 05/30/18 13:16) LIPS SWELL clavulanic acid [From Augmentin] Allergy (Verified 05/30/18 13:16) SHORTNESS OF BREATH, RASH ON HANDS codeine Allergy (Verified 05/30/18 13:16) AGRESSIVE BEHAVIOR meperidine [From Demerol] Allergy (Verified 05/30/18 13:16) WHELTS Penicillins Allergy (Verified 05/30/18 13:16) Anaphylaxis rosuvastatin [From Crestor] Allergy (Verified 05/30/18 13:16) Shortness of Breath Sulfa (Sulfonamide Antibiotics) Allergy (Verified 04/14/19 11:47) Lips swelled tetracycline Allergy (Verified 05/30/18 13:16) LIPS,RASH BETA BLOCKERS Allergy (Uncoded 05/30/18 13:16) HYPOTENSION, DEPRESSION IVP DYE Allergy (Uncoded 05/30/18 13:16) Anaphylaxis Past Medical History - Past Medical History Cardiac Medical History: Denies: Hx Coronary Artery Disease, Hx Heart Attack, Hx Hypertension Pulmonary Medical History: Reports: Hx Pneumonia - AGE 7 Denies: Hx Asthma, Hx Bronchitis, Hx COPD Neurological Medical History: Denies: Hx Cerebrovascular Accident, Hx Seizures Renal/ Medical History: Denies: Hx Peritoneal Dialysis GI Medical History: Reports: Hx Gastroesophageal Reflux Disease, Hx Hiatal Hernia Musculoskeltal Medical History: Reports Hx Arthritis - RIGHT KNEE, BILATERAL KNUCKLES Past Surgical History: Reports: Hx Appendectomy, Hx Breast Surgery - augmentation, Hx Cholecystectomy, Hx Hysterectomy, Hx Vascular Surgery - vein ablation - Immunizations Hx Diphtheria, Pertussis, Tetanus Vaccination: Yes Physical Exam - Vital signs Vitals: Temp Pulse Resp BP Pulse Ox 97.7 F 78 18 135/72 H 99 07/27/19 16:37 07/27/19 16:37 07/27/19 16:37 07/27/19 16:37 07/27/19 16:37 Course - Vital Signs Vital signs: Temp Pulse Resp BP Pulse Ox 97.7 F 78 18 135/72 H 99 07/27/19 16:37 07/27/19 16:37 07/27/19 16:37 07/27/19 16:37 07/27/19 16:37
[2019-07-27] MEDS ORDERED: NORMAL SALINE 1000 ML 1,000 ML IV ONE ×2 (16:53→20:12)
[2019-07-27 18:04] LABS: ABSOLUTE EOSINOPHILS # (AUTO) 0.1 10^3/uL (0.0-0.6); ABSOLUTE LYMPHOCYTES (AUTO) 0.9 10^3/uL (0.5-4.7); ABSOLUTE MONOCYTES (AUTO) 0.4 10^3/uL (0.1-1.4); ABSOLUTE NEUT (AUTO) 2.8 10^3/uL (1.7-8.2); BASOPHILS % (AUTO) 0.4 % (0-2); EOSINOPHILS % (AUTO) 1.3 % (0-6); HEMATOCRIT 36.8 % (36.0-47.0); HEMOGLOBIN 12.8 g/dL (12.0-15.5); LYMPHOCYTES % (AUTO) 20.8 % (13-45); MEAN CORPUSCULAR HEMOGLOBIN 30.7 pg (27.0-33.4); MEAN CORPUSCULAR HGB CONC 34.8 g/dL (32.0-36.0); MEAN CORPUSCULAR VOLUME 88 fl (80-97); MONOCYTES % (AUTO) 9.6 % (3-13); PLATELET COUNT 251 10^3/uL (150-450); RED BLOOD COUNT 4.16 10^6/uL (3.72-5.28); SEGMENTED NEUTROPHILS % (AUTO) 67.9 % (42-78); TOTAL CELLS COUNTED % (AUTO) 100 %; WHITE BLOOD COUNT 4.1 10^3/uL (4.0-10.5)
[2019-07-27 18:11] LABS: INTERNATIONAL RATION (INR) 0.97; PROTHROMBIN TIME 12.9 SEC (11.4-15.4)
[2019-07-27 18:12] LABS: PARTIAL THROMBOPLASTIN TIME 35.5 SEC (23.5-35.8)
[2019-07-27] MEDS ORDERED: ONDANSETRON HCL INJ/PF 4 MG/2 ML SDV IV ONE (18:18)
[2019-07-27 18:27] LABS: ALKALINE PHOSPHATASE 105 U/L (38-126); ANION GAP 6 (5-19); ASPARTATE AMINO TRANSFERASE 30 U/L (14-36); BILIRUBIN,TOTAL 0.4 mg/dL (0.2-1.3); BLOOD UREA NITROGEN 12 mg/dL (7-20); CALCIUM 9.2 mg/dL (8.4-10.2); CARBON DIOXIDE 25 mmol/L (22-30); CHLORIDE 102 mmol/L (98-107); GLUCOSE 101 mg/dL (75-110); POTASSIUM 4.1 mmol/L (3.6-5.0); TOTAL PROTEIN 6.4 g/dL (6.3-8.2)
--- NOTE | 2019-07-27 19:07 | RADIOLOGY REPORT (SQ) ---
EXAM DESCRIPTION: CT HEAD WITHOUT IMAGES COMPLETED DATE/TIME: 07/27/2019 5:40 pm REASON FOR STUDY: severe SANON COMPARISON: None. TECHNIQUE: Axial images acquired through the brain without intravenous contrast. Images reviewed wi th bone, brain and subdural windows. Additional sagittal and coronal reconstructions were generated. Images stored on PACS. All CT scanners at this facility use dose modulation, iterative reconstruction, and/or weight based d osing when appropriate to reduce radiation dose to as low as reasonably achievable (ALARA). [facility]: Dose Right [facility]: CareDose [facility]: Dose Right [facility]: Teradose 4D [facility]: Smart Rapid Mobile RADIATION DOSE: CT Rad equipment meets quality standard of care and radiation dose reduction techniq ues were employed. CTDIvol: 48.7 mGy. DLP: 1004 mGy-cm. mGy. LIMITATIONS: None. FINDINGS: VENTRICLES: Normal size and contour. CEREBRUM: No masses. No hemorrhage. No midline shift. No evidence for acute infarction. Normal gra y/white matter differentiation. No areas of low density in the white matter. CEREBELLUM: No masses. No hemorrhage. No alteration of density. No evidence for acute infarction. EXTRAAXIAL SPACES: No fluid collections. No masses. ORBITS AND GLOBE: No intra- or extraconal masses. Normal contour of globe without masses. CALVARIUM: No fracture. PARANASAL SINUSES: No fluid or mucosal thickening. SOFT TISSUES: No mass or hematoma. OTHER: No other significant finding. IMPRESSION: NORMAL BRAIN CT WITHOUT CONTRAST. EVIDENCE OF ACUTE STROKE: NO. COMMENT: Quality ID # [id number]: Final reports with documentation of one or more dose reduction techniques (e.g., Automated exposure control, adjustment of the mA and/or kV according to patient size, use of iterative reconstruction technique) TECHNICAL DOCUMENTATION: JOB ID: [id number] [employer]- All Rights Reserved Reading location - IP/workstation name: [email or web address]
--- NOTE | 2019-07-27 19:35 | ER Document Report ---
ED General - General Chief Complaint: Headache Stated Complaint: HEADACHE,VOMITING Time Seen by Provider: 07/27/19 16:50 Primary Care Provider: JESSE ELLIOTT PA-C [Primary Care Provider] - Follow up as needed Mode of Arrival: Ambulatory Notes: isaiah note 64-year-old female presented to ED for complaint of severe headache with nausea and vomiting since 7 AM this morning. She states last night she picked up a container and put it up on a shelf and this morning she woke up with pain in her neck head back with nausea and vomiting cannot keep anything down. She is alert oriented respirations regular nonlabored. She states she does have a history of PTSD, anxiety, panic attacks, elevated cholesterol, and migraines a long time ago. She states she has not had any migraines since she had a hysterectomy. She also has a history of cholecystectomy appendectomy and vein stripping. She states she is just getting over a UTI where she took antibiotics. She states she does use vapor cigarettes but does not smoke regular cigarettes. She lives alone with her family. She states her daughter brought her to the emergency room. my notes 64-year-old female with early a.m. migraine headache with nausea vomiting and photophobia; patient reports she has a long history of migraines but has not had 1 this severe in many months. She was cleaning her granddaughters rooms yesterday because her son is a single parent and they have birds and dogs. Patient reports she awoke this morning with her current symptoms. Patient is very adamant that she does not want anything strong but also is very adamant she only wants certain medicines. She says she is allergic to Demerol which causes severe hives. Also see the other medication list. When I offered morphine Phenergan and Haldol the patient did not want these medicines. She finally consented to morphine and Phenergan only. Patient denies any nuchal rigidity she denies any skin rash denies any trauma denies any sore throat rhinorrhea abdominal pain back pain extremity pain visual changes other than the photophobia. Patient reports" her personal doctor across the street usually gives her Toradol but patient takes this p.o. medications and this has not helped her today." TRAVEL OUTSIDE OF THE [place] IN LAST 30 DAYS: No - Related Data Allergies/Adverse Reactions: amoxicillin [From Augmentin] Allergy (Verified 07/27/19 20:13) SHORTNESS OF BREATH, RASH ON HANDS cephalexin [From Keflex] Allergy (Verified 07/27/19 20:13) LIPS SWELL clavulanic acid [From Augmentin] Allergy (Verified 07/27/19 20:13) SHORTNESS OF BREATH, RASH ON HANDS codeine Allergy (Verified 07/27/19 20:13) AGRESSIVE BEHAVIOR meperidine [From Demerol] Allergy (Verified 07/27/19 20:13) WHELTS Penicillins Allergy (Verified 07/27/19 20:13) Anaphylaxis rosuvastatin [From Crestor] Allergy (Verified 07/27/19 20:13) Shortness of Breath Sulfa (Sulfonamide Antibiotics) Allergy (Verified 07/27/19 20:13) Lips swelled tetracycline Allergy (Verified 07/27/19 20:13) LIPS,RASH BETA BLOCKERS Allergy (Unknown, Uncoded 07/27/19 20:13) HYPOTENSION, DEPRESSION IVP DYE Allergy (Uncoded 05/30/18 13:16) Anaphylaxis Past Medical History - General Information source: Patient - Social History Smoking Status: Former Smoker Cigarette use (# per day): No Chew tobacco use (# tins/day): No Smoking Education Provided: No Family History: Reviewed & Not Pertinent Patient has suicidal ideation: No Patient has homicidal ideation: No - Past Medical History Cardiac Medical History: Denies: Hx Coronary Artery Disease, Hx Heart Attack, Hx Hypertension Pulmonary Medical History: Reports: Hx Pneumonia - AGE 7 Denies: Hx Asthma, Hx Bronchitis, Hx COPD Neurological Medical History: Denies: Hx Cerebrovascular Accident, Hx Seizures Renal/ Medical History: Denies: Hx Peritoneal Dialysis GI Medical History: Reports: Hx Gastroesophageal Reflux Disease, Hx Hiatal Hernia Musculoskeletal Medical History: Reports Hx Arthritis - RIGHT KNEE, BILATERAL KNUCKLES Past Surgical History: Reports: Hx Appendectomy, Hx Breast Surgery - augme ntation, Hx Cholecystectomy, Hx Hysterectomy, Hx Vascular Surgery - vein ablation - Immunizations Hx Diphtheria, Pertussis, Tetanus Vaccination: Yes Review of Systems - Review of Systems Constitutional: Malaise, Weakness EENT: No symptoms reported Cardiovascular: No symptoms reported Respiratory: No symptoms reported Gastrointestinal: See HPI, Nausea, Vomiting Genitourinary: No symptoms reported Female Genitourinary: No symptoms reported Musculoskeletal: No symptoms reported Skin: No symptoms reported Hematologic/Lymphatic: No symptoms reported Neurological/Psychological: See HPI, Weakness, Headaches, Other - Photophobia Physical Exam - Vital signs Vitals: Temp Pulse Resp BP Pulse Ox 97.7 F 78 18 135/72 H 99 07/27/19 16:37 07/27/19 16:37 07/27/19 16:37 07/27/19 16:37 07/27/19 16:37 Interpretation: Normal - HEENT Head: Normocephalic, Atraumatic Eyes: Normal Pupils: PERRL Pharynx: Normal Neck: Normal, Supple - Respiratory Respiratory status: No respiratory distress Chest status: Nontender Breath sounds: Normal Chest palpation: Normal - Cardiovascular Rhythm: Regular Heart sounds: Normal auscultation Murmur: No - Abdominal Inspection: Normal Distension: No distension Bowel sounds: Normal Tenderness: Nontender Organomegaly: No organomegaly - Genitourinary Bimanuel exam: Other - deferred - Back Back: Normal, Nontender - Extremities General upper extremity: Normal inspection, Normal ROM General lower extremity: Normal inspection, Normal ROM - Neurological Neuro grossly intact: Yes Cognition: Normal Orientation: AAOx4 [place] Coma Scale Eye Opening: Spontaneous [place] Coma Scale Verbal: Oriented [place] Coma Scale Motor: Obeys Commands Keno Coma Scale Total: 15 Speech: Normal Motor strength normal: LUE, RUE, LLE, RLE Sensory: Normal - Psychological Associated symptoms: Anxious, Tearful - Skin Skin Temperature: Warm Skin Moisture: Dry Course - Vital Signs Vital signs: Temp Pulse Resp BP Pulse Ox 98.5 F 84 12 118/76 99 07/27/19 21:50 07/27/19 19:25 07/27/19 22:01 07/27/19 22:01 07/27/19 22:01 - Laboratory Result Diagrams: 07/27/19 17:40 07/27/19 17:40 Laboratory results interpreted by me: 07/27/19 07/27/19 07/27/19 17:40 17:40 21:47 Sodium 132.6 L Creatine Kinase 136 H Urine Ketones TRACE H Urine Blood SMALL H Leukocyte Esterase Rfl TRACE H - Diagnostic Test Radiology reviewed: Reports reviewed Critical Care Note - Critical Care Note Total time excluding time spent on procedures (mins): 90 Comments: By 2300 patient had resolution of her migraine but requested 1 more shot of Toradol prior to leaving. She still had some frontal and occipital pain but "much improved". Discharge - Discharge Clinical Impression: Migraine Qualifiers: Migraine type: unspecified Status migrainosus presence: without status migrainosus Intractability: not intractable Qualified Code(s): G43.909 - Migraine, unspecified, not intractable, without status migrainosus Condition: Good Disposition: HOME, SELF-CARE Instructions: Antinausea Medication ([facility]), Toradol Injection ([facility]) Additional Instructions: Follow-up with personal doctor this week if symptoms persist take medicines as directed encourage fluids may take nightly medication for migraines as needed. Prescriptions: Ketorolac Tromethamine [Toradol 10 mg Tablet] 10 mg PO BID #10 tablet Referrals: JESSE ELLIOTT PA-C [Primary Care Provider] - Follow up as needed
[2019-07-27] MEDS ORDERED: PROMETHAZINE HCL INJ 25 MG/1 ML VIAL IV ONE (19:41)
[2019-07-27] MEDS ORDERED: MORPHINE SULFATE 10 MG/ML INJ IV ONE (19:42)
[2019-07-27] MEDS ORDERED: DIPHENHYDRAMINE HCL 50 MG/ML VIAL IV ONE (21:53)
[2019-07-27] MEDS ORDERED: KETOROLAC TROMETHAMINE INJ/PF 30 MG/1 ML SDV IV ONE ×2 (21:53→23:05)
[2019-07-27 22:06] LABS: APPEARANCE,URINE SLIGHTLY-CLOUDY; BILIRUBIN,URINE NEGATIVE (NEGATIVE); COLOR,URINE YELLOW; GLUCOSE, URINE NEGATIVE (NEGATIVE); KETONES,URINE TRACE mg/dL (NEGATIVE); PROTEIN,URINE NEGATIVE (NEGATIVE); URINE SPECIFIC GRAVITY 1.014; UROBILINOGEN,URINE NEGATIVE mg/dL (<2.0)
[2019-07-27 23:25] VITALS: BP 106/74
== END 2019-07-27 23:26 | disposition home or self-care (01) ==
LOC: ER 16:35
DX: G43.909 Migraine, unspecified, not intractable, without status migrainosus (principal); R11.2 Nausea with vomiting, unspecified; H53.149 Visual discomfort, unspecified; R53.81 Other malaise; R53.1 Weakness; Z88.6 Allergy status to analgesic agent; Z88.5 Allergy status to narcotic agent; Z88.0 Allergy status to penicillin; Z88.1 Allergy status to other antibiotic agents; Z88.8 Allergy status to other drugs, medicaments and biological substances; Z88.2 Allergy status to sulfonamides; Z91.041 Radiographic dye allergy status
CPT/HCPCS: 96376; 99285; 96361; 96374; 96375; 36415; 87086; 82550; 85025; 85610; 85730; 87088; 80053; 81001; 84484; 70450; J1885; J2270; J2550; J2405; J7030; 87186

== ENCOUNTER → 2019-10-08 | Outpatient (CLI) | payer MEDICARE, OTHER ==
--- NOTE | 2019-10-09 10:04 | RADIOLOGY REPORT (SQ) ---
EXAM DESCRIPTION: MRI LUMBAR SPINE COMBO IMAGES COMPLETED DATE/TIME: 10/08/2019 9:30 pm REASON FOR STUDY: M54.16 RADICULOPATHY, LUMBAR REGION M54.16 RADICULOPATHY, LUMBAR REGION M53.88 O TH DORSOPATHIES, SACRAL AND SACROCOCCYGEAL REGION COMPARISON: None. TECHNIQUE: Sagittal and Axial imaging includes T1, T1 post gadolinium, T2, STIR and gradient echo se quences. Coronal T2/HASTE imaging. CONTRAST TYPE AND DOSE: 10 mL Prohance. RENAL FUNCTION: Not indicated. ACR Type II contrast agent associated with few, if any, unconfounded cases of NSF LIMITATIONS: None. FINDINGS: VISUALIZED UPPER ABDOMEN: Limited evaluation. No acute or suspicious findings suggested. SEGMENTATION: No transitional anatomy. The lowest well-developed disc space is labeled L5-S1. ALIGNMENT: Anatomic. VERTEBRAE: Intact. No fractures. BONE MARROW: Normal. No marrow replacement or reactive changes. DISC SIGNAL: Loss of normal water signal throughout the lumbar spine consistent with desiccation. POSTERIOR ELEMENTS: Generally intact. No pars defect evident. HARDWARE: None in the spine. CORD AND CONUS: Normal in size and signal intensity. Conus at the appropriate level. SOFT TISSUES: No aortic aneurysm seen. No bulky retroperitoneal adenopathy or mass. No paraspinal mas s or fluid. L1-L2: No significant spinal stenosis or exit foraminal stenosis. L2-L3: No significant spinal stenosis or exit foraminal stenosis. L3-L4: No significant spinal stenosis or exit foraminal stenosis. L4-L5: Mild annular disc bulging. Bilateral facet arthropathy. No significant central stenosis. No significant foraminal narrowing. L5-S1: Mild annular disc bulging. No central stenosis or nerve root impingement. LOWER THORACIC: Incompletely imaged. No stenosis seen. 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 ENHANCEMENT: No abnormal enhancement. OTHER: No other significant findings. IMPRESSION: Mild multilevel spondylosis. No high-grade central canal stenosis or nerve root impinge ment. TECHNICAL DOCUMENTATION: JOB ID: [id number] 2010 [employer]- All Rights Reserved Reading location - IP/workstation name: [email or web address]
--- NOTE | 2019-10-09 10:59 | RADIOLOGY REPORT (SQ) ---
EXAM DESCRIPTION: MRI PELVIS COMBO IMAGES COMPLETED DATE/TIME: 10/08/2019 9:30 pm REASON FOR STUDY: M53.88 OTH DORSOPATHIES, SACRAL AND SACROCOCCYGEAL REGION M54.16 RADICULOPATHY, L UMBAR REGION M53.88 OTH DORSOPATHIES, SACRAL AND SACROCOCCYGEAL REGION COMPARISON: Hip radiographs from April. TECHNIQUE: Multiplanar multisequence imaging performed without and with contrast including axial, sa gittal and coronal T2, axial T, axial gradient fat sat T1, axial, sagittal and coronal fat sat T2 pos t contrast. CONTRAST TYPE AND DOSE: 10 mL Prohance. RENAL FUNCTION: Not needed. LIMITATIONS: None. FINDINGS: BLADDER AND URETHRA: No focal bladder wall thickening or nodularity. Smooth mucosa. The urethra has smooth contour with no focal asymmetry. No abnormal enhancement. No focal lesions. PELVIC SOFT TISSUES: Normal. No masses. UTERUS: Presumably absent. Not seen. RIGHT OVARY: Not seen. No regional mass. LEFT OVARY: Not seen. No regional mass. FREE FLUID: None. PELVIC SKELETAL STRUCTURES: No abnormal marrow signal. EXTRA PELVIS SOFT TISSUES: No masses. OTHER: No other significant finding. IMPRESSION: 1. Generally unremarkable MRI of the pelvis without and with contrast. Skeletal structures are intac t. No soft tissue pathology. 2. Status post hysterectomy. No pelvic mass identified. Ovaries not seen. TECHNICAL DOCUMENTATION: JOB ID: [id number] 2010 [employer]- All Rights Reserved Reading location - IP/workstation name: [email or web address]
== END ==
LOC: RAD 18:55
PROVIDERS: ATTEND Physician Assistant
DX: M54.16 Radiculopathy, lumbar region (principal); M53.88 Other specified dorsopathies, sacral and sacrococcygeal region
CPT/HCPCS: 82565; 72158; 72197; A9576

== ENCOUNTER 2020-01-03 16:09 | Emergency (ER) | payer MEDICARE, OTHER ==
[2020-01-03 16:30] VITALS: BP 126/78
[2020-01-03] MEDS ORDERED: NORMAL SALINE 1000 ML 1,000 ML IV ONE (16:39)
[2020-01-03] MEDS ORDERED: PROCHLORPERAZINE EDISYLATE INJ 10 MG/2 ML VIAL IV ONE (16:39)
[2020-01-03] MEDS ORDERED: DIPHENHYDRAMINE HCL 50 MG/ML VIAL IV ONE (16:39)
[2020-01-03] MEDS ORDERED: KETOROLAC TROMETHAMINE INJ/PF 30 MG/1 ML SDV IV ONE (16:39)
--- NOTE | 2020-01-03 16:47 | ER Document Report ---
ED Medical Screen (RME) - General Chief Complaint: Headache, Worst Ever Stated Complaint: MIGRAINE/VOMITING Time Seen by Provider: 01/03/20 16:34 Primary Care Provider: PREMA HILL DO [Primary Care Provider] - Follow up as needed Mode of Arrival: Wheelchair Information source: Patient Notes: 64-year-old female patient with history of migraines presents the emergency department with a headache that began this morning after she woke up. She reports she has been vomiting multiple times today despite taking Zofran and and [id number]-[id number] headache medication. Denies any fever or recent illness. I have greeted and performed a rapid initial assessment of this patient. A comprehensive ED assessment and evaluation of the patient, analysis of test results and completion of the medical decision making process will be conducted by additional ED providers. I have specifically instructed the patient or family members with the patient to immediately return to any nursing staff should anything change in the patient's condition or with their chief complaint. TRAVEL OUTSIDE OF THE [place] IN LAST 30 DAYS: No - Related Data Allergies/Adverse Reactions: amoxicillin [From Augmentin] Allergy (Verified 07/27/19 20:13) SHORTNESS OF BREATH, RASH ON HANDS cephalexin [From Keflex] Allergy (Verified 07/27/19 20:13) LIPS SWELL clavulanic acid [From Augmentin] Allergy (Verified 07/27/19 20:13) SHORTNESS OF BREATH, RASH ON HANDS codeine Allergy (Verified 07/27/19 20:13) AGRESSIVE BEHAVIOR meperidine [From Demerol] Allergy (Verified 07/27/19 20:13) WHELTS Penicillins Allergy (Verified 07/27/19 20:13) Anaphylaxis rosuvastatin [From Crestor] Allergy (Verified 07/27/19 20:13) Shortness of Breath Sulfa (Sulfonamide Antibiotics) Allergy (Verified 07/27/19 20:13) Lips swelled tetracycline Allergy (Verified 07/27/19 20:13) LIPS,RASH BETA BLOCKERS Allergy (Unknown, Uncoded 07/27/19 20:13) HYPOTENSION, DEPRESSION IVP DYE Allergy (Uncoded 05/30/18 13:16) Anaphylaxis Past Medical History - Past Medical History Cardiac Medical History: Denies: Hx Coronary Artery Disease, Hx Heart Attack, Hx Hypertension Pulmonary Medical History: Reports: Hx Pneumonia - AGE 7 Denies: Hx Asthma, Hx Bronchitis, Hx COPD Neurological Medical History: Denies: Hx Cerebrovascular Accident, Hx Seizures Renal/ Medical History: Denies: Hx Peritoneal Dialysis GI Medical History: Reports: Hx Gastroesophageal Reflux Disease, Hx Hiatal Hernia Musculoskeltal Medical History: Reports Hx Arthritis - RIGHT KNEE, BILATERAL KNUCKLES Past Surgical History: Reports: Hx Appendectomy, Hx Breast Surgery - augmentation, Hx Cholecystectomy, Hx Hysterectomy, Hx Vascular Surgery - vein ablation - Immunizations Hx Diphtheria, Pertussis, Tetanus Vaccination: Yes Physical Exam - Vital signs Vitals: Temp Pulse Resp BP Pulse Ox 97.7 F 82 20 126/78 H 99 01/03/20 16:26 01/03/20 16:26 01/03/20 16:01/03/20 16:01/03/20 16:26 Course - Vital Signs Vital signs: Temp Pulse Resp BP Pulse Ox 97.7 F 82 20 126/78 H 99 01/03/20 16:26 01/03/20 16:26 01/03/20 16:01/03/20 16:01/03/20 16:26 Doctor's Discharge - Discharge Referrals: PREMA HILL DO [Primary Care Provider] - Follow up as needed
--- NOTE | 2020-01-03 18:19 | ER Document Report ---
HPI - HPI Time Seen by Provider: 01/03/20 16:34 Pain Level: 5 Notes: 64-year-old female patient with history of migraines presents the emergency department with a headache that began this morning after she woke up. She reports she has been vomiting multiple times today despite taking Zofran and and ssuu-zkz-ywudaov headache medication. Denies any fever or recent illness. - ROS Systems Reviewed and Negative: Yes All other systems reviewed and negative - NEURO Neurology: REPORTS: Headache - GASTROINTESTINAL Gastrointestinal: REPORTS: Nausea, Patient vomiting Past Medical History - General Information source: Patient - Social History Smoking Status: Never Smoker Family History: Reviewed & Not Pertinent - Past Medical History Cardiac Medical History: Denies: Hx Coronary Artery Disease, Hx Heart Attack, Hx Hypertension Pulmonary Medical History: Reports: Hx Pneumonia - AGE 7 Denies: Hx Asthma, Hx Bronchitis, Hx COPD Neurological Medical History: Reports: Hx Migraine. Denies: Hx Cerebrovascular Accident, Hx Seizures Renal/ Medical History: Denies: Hx Peritoneal Dialysis GI Medical History: Reports: Hx Gastroesophageal Reflux Disease, Hx Hiatal Hernia Musculoskeletal Medical History: Reports Hx Arthritis - RIGHT KNEE, BILATERAL KNUCKLES Past Surgical History: Reports: Hx Appendectomy, Hx Breast Surgery - augmentation, Hx Cholecystectomy, Hx Hysterectomy, Hx Vascular Surgery - vein ablation - Immunizations Hx Diphtheria, Pertussis, Tetanus Vaccination: Yes Vertical Provider Document - CONSTITUTIONAL Notes: PHYSICAL EXAMINATION: GENERAL: Well-appearing, well-nourished and in no acute distress. HEAD: Atraumatic, normocephalic. EYES: Pupils equal round extraocular movements intact, conjunctiva are normal. ENT: Nares patent NECK: Normal range of motion, no nuchal rigidity LUNGS: No respiratory distress Musculoskeletal: Normal range of motion NEUROLOGICAL: Normal speech, normal gait. PSYCH: Normal mood, normal affect. SKIN: Warm, Dry, normal turgor, no rashes or lesions noted. - INFECTION CONTROL TRAVEL OUTSIDE OF THE [place] IN LAST 30 DAYS: No Course - Re-evaluation Re-evalutation: Presentation of a headache that appears to be most consistent with tension versus migrainous type headache. Headache was not maximal in onset, patient has no focal neurologic deficits, no nuchal rigidity, vital signs within normal limits, no papilledema, and patient is overall well in appearance. Based on clinical history and examination I do not suspect an acute subarachnoid hemorrhage, dural venous sinus thrombosis, acute meningitis, or intercranial mass. Given my low clinical suspicion for any acute life-threatening etiology, I do not feel advanced neuro imaging or laboratory testing is indicated at this time. Will proceed with headache cocktail and reassess. Patient reports resolution of her headache after administration of migraine cocktail. She will be discharged home at this time. - Vital Signs Vital signs: Temp Pulse Resp BP Pulse Ox 97.7 F 82 20 126/78 H 99 01/03/20 16:26 01/03/20 16:26 01/03/20 16:26 01/03/20 16:26 01/03/20 16:26 Discharge - Discharge Clinical Impression: Migraine headache Qualifiers: Migraine type: unspecified Status migrainosus presence: without status migr ainosus Intractability: not intractable Qualified Code(s): G43.909 - Migraine, unspecified, not intractable, without status migrainosus Condition: Stable Disposition: HOME, SELF-CARE Additional Instructions: You were seen today for a migraine headache. Please follow-up with your primary care doctor regarding today's ED visit. Return to emergency department immediately if you develop a headache that gets to its maximum severity within 20 minutes of onset, you pass out, you develop weakness, numbness, changes in your vision, become unable to keep any fluids down for more than 12 hours, or develop a fever greater than 100.4 degrees Fahrenheit. If you develop a similar migraine headache in the future I recommend that you immediately take 600 mg of ibuprofen and 50 mg of Benadryl and go to sleep as quickly as possible. This can often prevent your migraine headache from becoming severe. Referrals: PREMA HILL DO [Primary Care Provider] - Follow up as needed
== END 2020-01-03 18:48 | disposition home or self-care (01) ==
LOC: ER 16:09
DX: G43.909 Migraine, unspecified, not intractable, without status migrainosus (principal); R11.2 Nausea with vomiting, unspecified
CPT/HCPCS: 99284; 96361; 96374; 96375; J1200; J1885; J0780; J7030

== ENCOUNTER → 2020-01-08 | Outpatient (CLI) | payer MEDICARE, OTHER ==
--- NOTE | 2020-01-08 15:42 | RADIOLOGY REPORT (SQ) ---
EXAM DESCRIPTION: U/S THYROID/SFT TISS HD NECK IMAGES COMPLETED DATE/TIME: 01/08/2020 2:17 pm REASON FOR STUDY: (R22.1)LOCALIZED SWELLING, MASS AND LUMP, NECK R22.1 LOCALIZED SWELLING, MASS AND LUMP, NECK COMPARISON: None. TECHNIQUE: Dynamic and static jay-scale images acquired of the thyroid gland. Selected additional c olor/power Doppler images recorded. All images stored to PACS. LIMITATIONS: None. FINDINGS: Sonographic imaging and right-sided neck was performed. Imaging is performed on the left for comparison purposes. No mass is seen on the right side. A couple of normal-appearing lymph node s are seen on the left. IMPRESSION: There are some left-sided cervical lymph nodes. No mass is seen on the right. TECHNICAL DOCUMENTATION: JOB ID: [id number] 2010 [employer]- All Rights Reserved Reading location - IP/workstation name: [email or web address]
== END ==
LOC: WI 13:39
PROVIDERS: ATTEND Otolaryngology
DX: R22.1 Localized swelling, mass and lump, neck (principal)
CPT/HCPCS: 76536

== ENCOUNTER → 2020-02-04 | Outpatient (CLI) | payer MEDICARE, OTHER ==
--- NOTE | 2020-02-04 09:25 | ST Modified Barium Swallow ---
Recommendation - Recommendations Recommendations: Recommend patient follow up with GI due to significant reflux symptoms and history. Patient may benefit from short course of dysphagia treatment due to some signs of reduced pharyngeal movement resulting in mild to moderate pharyngeal residue after the swallow. Medical Diagnoses - Medical Diagnoses Medical Diagnosis Description & ICD-10 Code(s): dysphagia R13.10 Other Medical Diagnoses/Co-Morbidities: per patient report: reflux, hx of concussion - ICD-10 Tx Diagnosis Coding (1) Other gastritis without bleeding ICD-10 Code(s): K29.60 - OTHER GASTRITIS WITHOUT BLEEDING ST Modified Barium Swallow - General Date: 02/04/20 Referring Physician: Dr. Benítez Date of Onset: 01/09/16 - approximate onset 4 years ago Reason for Referral: worsening dysphagia and reflux - History History obtained from: Patient -: Medical - Patient arrived with for evaluation, patient primarily provided own history. Patient reports swallowing problems for approximately 4 years related to reflux. However, she has recently also noticed right anterior neck pain consistently, which gets worse when swallowing. Patient reports had ul trasound which showed left side cervical lymphnodes (normal appearing), no findings on right side. Patient is currently eating mostly soft foods due to discomfort with swallowing. Does report coughing and globus sensation with PO, solids and liquids. Also reports that at times, some loss of bolus from mouth, indicated left side of mouth. Medications: per patient report: xanax, wellbutrin, centrum silver, nexium, zetia Allergies: patient reports penicillin allergy, sensitivities to various foods (citrus, spinach, cayenne). Other medication allergies reported, unable to specifically name. - Functional Status Prior Functional Status: INDEPENDENT: feeding Current Functional Limitations: feeding - soft foods - Subjective Patient/caregiver goal(s): safe swallow, r/o struct. abnormality Cognitive-Linguistic Function: Functional Speech Intelligibility: WNL Current Nutritional Means: PO Current PO diet: Soft Current symptoms: Coughing, c/o Globus sensation Pain: Patient reports, 3/5 - reports chronic right side anterior neck pain, near larynx - Objective Assessment: Upright, Left Lateral - Food Trials Used Food trials used: Thin liquids, Pureed, Regular The patient: Was Able to Self Feed - Oral-Motor Skills Dentition: Full Velo-pharyngeal function: Unremarkable Laryngeal Function: clear voicing - Assessment Oral prep: Normal Labial closure: Adequate Leakage: None Mastication: Adequate Lingual Movement: Normal Oral stage: Normal for this Procedure - Pharyngeal Stage Initiation of Pharyngeal Stage Reflex: Normal Decreased laryngeal elevation: No Reduced Velopharyngeal Closure: no Reduced pressure generation: Yes reduced tongue-based retraction: No Pre-swallow pooling in valleculae: None Pre-Swallow pooling in pyriforms: None Reduced epiglottic excursion: No Reduced pharyngeal peristalsis/contraction: Yes Multiple Swallows with: Cleared w/ Liquid Assist Post-swallow residulas vallecular: Moderate Post-Swallow residuals in pyriforms: Mild - Fall Risk Assessment Medications/Conditions that increase fall risks include: Antidepressants, sedatives, anti-arrhythmic, diuretic, benzodiazipenes, neuroleptics. BP regulation problems, cardiac problems, balance or gait deficits, neurological problems. Is patient considered at risk for falls: no Fall Risk Actions Taken: No action needed - Behavioral Observations During evaluation process patient: was cooperative, provided medical history - Treatment / Educational Needs: Treatment/Education Needs: Treatment consisted of patient education on the role of the Speech Pathologist. Patient's plan of care and golas were communicated as well as scheduling and attendance policies. Recommendations for initial home program were shared. Patient demonstrated understanding and verbalized agreement. - Impression/Summary Laryngeal Penetration: Yes - with sequential straw sips of thin liquid only Tracheal Aspiration: no Patient presents with: Pharyngeal stage dysph., Mild-Moderate Risk of Aspiration: Mild Evaluation and Findings: Patient demonstrates mild to moderate pharyngeal phase dysphagia characterized by reduced posterior pharyngeal wall movement/ constriction, and resulting residue of solids in valleculae and pyriform sinus. Residue was cleared with liquid wash. Of note, the patient did at times feel sensation of residue when none was present as well as when it was. While overall muscle movement is adequate, slightly stilted or stiff quality to swallow seen. - Recommendations Solid diet recommendations: Regular Liquid Diet Modification: Thin Pt/Family education and followup with MD: Yes Dysphagia therapy with [employer] L[employer] RECEPTIONIST: dysphagia therapy - short course of dysphagia therapy indicated as long as not counterindicated by other medical condition. Recommended techniques: Small Bites and Sips, Alternate Bites/Sips - Time Total Time: 30 - Plan of Care Strategies to optimize patient understanding include:: ongoing assessment of e ducational needs, implementation of educational strategies, and re-education. - - -: Thank you for the opportunity to work with this patient and his/her family. Should you have any questions about this patient's plan or progress, I can be reached at [phone].
--- NOTE | 2020-02-04 10:22 | RADIOLOGY REPORT (SQ) ---
EXAM DESCRIPTION: COOKIE SWALLOW IMAGES COMPLETED DATE/TIME: 02/04/2020 9:55 am REASON FOR STUDY: REFLUX GASTRITIS K29.60 OTHER GASTRITIS WITHOUT BLEEDING DYSPHAGIA, NECK AND THRO AT FULLNESS COMPARISON: None. TECHNIQUE: Videofluoroscopic swallowing examination was performed in conjunction with speech patholo gy. Videofluoroscopic imaging was obtained and reviewed and these are the findings: RADIATION DOSE: 2.9 minutes of fluoroscopy was used. 1 images saved to PACS. LIMITATIONS: None FINDINGS: The patient was brought into the fluoro room and placed upright on a modified barium swall ow chair. The patient was then given multiple consistencies mixed with barium to swallow under live fluoroscopic video guidance. According to the Speech Pathologist there was trace laryngeal penetrati on without aspiration. IMPRESSION: TRACE LARYNGEAL PENETRATION WITHOUT ASPIRATION. PLEASE SEE SPEECH PATHOLOGIST REPORT FOR OTHER FINDINGS AND RECOMMENDATIONS. COMMENT: Quality ID [id number]: Final reports for procedures using fluoroscopy that document radiation exp osure indices, or exposure time and number of fluorographic images (if radiation exposure indices are not available) TECHNICAL DOCUMENTATION: JOB ID: [id number] 2010 [employer]- All Rights Reserved Reading location - IP/workstation name: [email or web address] [id number]
== END ==
LOC: RAD 08:19
PROVIDERS: ATTEND Otolaryngology
DX: K29.60 Other gastritis without bleeding (principal); R13.10 Dysphagia, unspecified
CPT/HCPCS: 74230

== ENCOUNTER → 2020-02-20 | Outpatient (CLI) | payer MEDICARE, OTHER ==
--- NOTE | 2020-02-20 09:48 | ER [facility] ASSESSMENT REPORT ---
Intake - In the Last 14 days Have you traveled outside [place]?: No Have you been in close contact with someone CONFIRMED: Yes Worked in Healthcare?: No - Symptoms Subjective Fever(Ashley feverish): No Chills: No Muscule Aches: No Runny Nose: No Sore Throat: No Cough (New or worsening chronic cough): Yes Shortness of breath: No Nausea or Vomiting: No Headache: Yes Abdominal Pain: No Diarrhea(3 or more loose stools in last 24 hours): No - Do you have any of the following Chronic lung disease: Asthma or emphysema or COPD: No Cystic Fibrosis: No Diabetes: No High Blood Pressure: No Cardiovascular Disease: No Chronic Kidney Disease: No Chronic Liver Disease: No Chronic blood disorder like Sickle Cell Disease: No Weak immune system due to disease or medication: No Neurologic condition that limits movement: No Developmental delay - Moderate to Severe: No Recent (within past 2 weeks) or current : No Morbid Obesity (>100 pounds over ideal weight): No - Objective Temperature: 98.3 F Pulse Rate: 73 Respiratory Rate: 18 Blood Pressure: 107/71 O2 Sat by Pulse Oximetry: 96 Objective: Given above, testing performed: If Testing Performed: Test Specimen Type Sent to General - General Information source: Patient Notes: Patient presents to the [facility] for screening for the coronavirus. Patient reports recent exposure to someone who did test positive. Patient has a history of panic disorder and PTSD and is a current smoker. - Related Data Allergies/Adverse Reactions: amoxicillin [From Augmentin] Allergy (Verified 07/27/19 20:13) SHORTNESS OF BREATH, RASH ON HANDS cephalexin [From Keflex] Allergy (Verified 07/27/19 20:13) LIPS SWELL clavulanic acid [From Augmentin] Allergy (Verified 07/27/19 20:13) SHORTNESS OF BREATH, RASH ON HANDS codeine Allergy (Verified 07/27/19 20:13) AGRESSIVE BEHAVIOR meperidine [From Demerol] Allergy (Verified 07/27/19 20:13) WHELTS Penicillins Allergy (Verified 07/27/19 20:13) Anaphylaxis rosuvastatin [From Crestor] Allergy (Verified 07/27/19 20:13) Shortness of Breath Sulfa (Sulfonamide Antibiotics) Allergy (Verified 07/27/19 20:13) Lips swelled tetracycline Allergy (Verified 07/27/19 20:13) LIPS,RASH BETA BLOCKERS Allergy (Unknown, Uncoded 07/27/19 20:13) HYPOTENSION, DEPRESSION IVP DYE Allergy (Uncoded 05/30/18 13:16) Anaphylaxis Past Medical History - General Information source: Patient - Social History Smoking Status: Current Every Day Smoker Family History: Reviewed & Not Pertinent - Past Medical History Cardiac Medical History: Denies: Hx Coronary Artery Disease, Hx Heart Attack, Hx Hypertension Pulmonary Medical History: Reports: Hx Pneumonia - AGE 7 Denies: Hx Asthma, Hx Bronchitis, Hx COPD Neurological Medical History: Reports: Hx Migraine. 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 Their evaluation, treatment and testing was consistent with current guidelines for patients who present with complaints or symptoms that may be related to Covid 19. Full physical exam could not be performed due to covid 19 isolation protocols. Constitutional: Nontoxic appearance, no acute distress Eyes: Nonicteric, extraocular movements intact, sclera clear Cardiovascular: Heart rate and rhythm regular, no JVD Respiratory: Clear bilaterally, nonlabored breathing, no use of accessory muscles, no tachypnea Gastrointestinal: Abdomen not distended Muculoskeletal: Moves all extremities well Skin: Normal color Neuro: Awake alert oriented, normal speech Psych: Normal mood and affect Diagnostic Results Laboratory Results: Patient presents with upper respiratory symptoms worrisome for possible Covid 19. Patient does not have emergency worrying symptoms such as difficulty breathing, shortness of breath, chest pain, pressure, confusion or cyanosis. Patient appears suitable for discharge as they are not of an advanced age, do not have any chronic medical conditions such as diabetes, CAD, immune deficiency, chronic lung disease or chronic kidney disease. Patient's vital signs are stable and patient is nontoxic in appearance. Good return precautions have been discussed with patient, patient verbalized understanding and is agreeable with discharge plan of care at this time. Patient Education/Counseling Counseling/Education: Patient was provided with discharge information including: As a person under investigation for Covid 19, the [place] department of Health and Human Services, division of public health advises you to adhere to the following guidance until your test results are reported to you. If your test result is positive, you will receive additional information from your provider and your local health department at that time. Remain at home until you are cleared by the health provider or public health authorities. Keep a log of visitors to your home, notify any visitors to your home of your isolation status. If you plan to move to a new address or leave the county, notify the local health department in your County. Call your doctor or seek care if you have an urgent medical need. Before seeking medical care, call ahead to get instructions from the provider before arriving at the medical office clinic or hospital. Notify them that you are being tested for the virus that causes Covid 19 so that arrangements can be made, as necessary, to prevent transmission to others in the healthcare setting. Next, notify the local health department in your county. If a medical emergency arises and you need to call 911, inform the first responders that you are being tested for the virus that causes Covid 19. Next, notify the local health department in your county. [facility] Discharge - Discharge Clinical Impression: Encounter for screening laboratory testing for COVID-19 virus Condition: Stable Disposition: Home; Selfcare
[2020-02-20 09:49] VITALS: BP 107/71
[2020-02-20 10:40] LABS: A TYPE INFLUENZA AG NEGATIVE (NEGATIVE); B INFLUENZA AG NEGATIVE (NEGATIVE)
--- OUTSIDE RECORDS SUMMARY | 2020-02-21 15:12 | XMS REPORT ---
:1955 [facility] [place] [address] [place] [address] Care Team Providers Name Role Phone PREMA MOYER Primary Care Physician Unavailable Demarco Contreras Attending Clinician Unavailable Ming Bender Jr Attending Clinician Unavailable Allergies, Adverse Reactions, Alerts Allergy Allergy Status Severity Reaction(s) Onset Inactive Treating C omments Name Type Date Date Clinician SULFA Miscellane Active U 2017-04 (SULFONAMID ous 0-10 E allergy 00:00: ANTIBIOTICS 00 ) KETOROLAC Drug Active U 2017-04 TROMETHAMIN allergy 0-10 E 00:00: 00 BLACK Drug Active U 2017-04 PEPPER allergy 0-10 00:00: 00 SPINACH Drug Active U 2017-04 allergy 0-10 00:00: 00 IODINATED Miscellane Active U 2017-04 CONTRAST- ous 0-10 ORAL AND IV allergy 00:00: DYE 00 ROSUVASTATI Drug Active U 2017-04 N CALCIUM allergy 0-10 00:00: 00 CIPROFLOXAC Drug Active U 2017-04 IN allergy 0-10 00:00: 00 CIPROFLOXAC Drug Active U 2017-04 IN HCL allergy 0-10 00:00: 00 CEPHALEXIN Drug Active U 2017-04 MONOHYDRATE allergy 0-10 00:00: 00 LIDOCAINE Drug Inactive U allergy 7 00:00: 00 PENICILLINS Miscellane Inactive U ous 7-25 allergy 00:00: 00 PRILOCAINE Drug Inactive U allergy 7- 00:00: 00 AMOXICILLIN Drug Inactive U TRIHYDRATE allergy 7 00:00: 00 TETRACYCLIN Drug Inactive U E allergy 7 00:00: 00 POTASSIUM Drug Inactive U CLAVULANATE allergy 11-01 00:00: 00 CITRUS AND Miscellane Inactive U DERIVATIVES ous 11-01 allergy 00:00: 00 SPINACH Drug Inactive U LEAF allergy 11-01 00:00: 00 SULFA Miscellane Inactive U 2015-04 (SULFONAMID ous 1-17 E allergy 00:00: ANTIBIOTICS 00 ) ROSUVASTATI Drug Active Unknown 2015-04 N CALCIUM allergy 04-26 00:00: 00 CEPHALEXIN Drug Inactive U 2015-04 MONOHYDRATE allergy 04-26 00:00: 00 DYE Drug Inactive U 2015-04 allergy 04-26 00:00: 00 TETRACYCLIN Drug Active Unknown 2015-04 E allergy 04-26 00:00: 00 POTASSIUM Drug Inactive U 2015-04 CLAVULANATE allergy 04-26 00:00: 00 BETA-BLOCKE Miscellane Inactive U 2015-04 RS ous 17 (BETA-ADREN allergy 00:00: ERGIC 00 BLOCKING AGTS) MEPERIDINE Drug Active Unknown 2015-04 HCL allergy 04-26 00:00: 00 AMOXICILLIN Drug Active Unknown 2015-04 TRIHYDRATE allergy 04-26 00:00: 00 PENICILLIN Drug Active Unknown 2015-04 allergy 04-26 00:00: 00 SULFA Miscellane Active Unknown 2015-04 (SULFONAMID ous 117 E allergy 00:00: ANTIBIOTICS 00 ) CEPHALEXIN Drug Active Unknown 2015-04 MONOHYDRATE allergy 04-26 00:00: 00 DYE Drug Active Unknown 2015-04 allergy 04-26 00:00: 00 POTASSIUM Drug Active Unknown 2015-04 CLAVULANATE allergy 04-26 00:00: 00 BETA-BLOCKE Miscellane Active Unknown 2015-04 RS ous 17 (BETA-ADREN allergy 00:00: ERGIC 00 BLOCKING AGTS) Augmentin Allergy to Active substance Beta-blocke Allergy to Active rs substance (Beta-adren ergic Blocking Agts) Cipro Allergy to Inactive substance Crestor Allergy to Active substance Demerol Allergy to Active substance Egg Yolk Allergy to Active substance Keflex Allergy to Inactive substance Macrobid Allergy to Inactive substance Mobic Allergy to Active substance Penicillins Allergy to Active substance Shellfish Allergy to Active Derived substance Sulfa Allergy to Active (Sulfonamid substance e Antibiotics ) Tetracyclin Allergy to Active e substance Toradol Allergy to Inactive substance Medications Ordered Filled Start Stop Current Ordering Indication Dosage Frequency Signature Comments Components Medication Medication Date Date Medication? Clinician (SIG) Name Name alprazolam No alprazolam 1 mg tablet 1 mg TK 1 T PO tablet TK QID PRN 1 T PO QID PRN tramadol 50 No tramadol mg tablet 50 mg one tablet tablet one BID PRN tablet BID pain PRN pain Zetia 10 mg No 1 Q1D Zetia 10 tablet Take mg tablet 1 tablet Take 1 every day tablet by oral every day route. by oral route. cephalexin No cephalexin 500 mg 500 mg capsule TK capsule TK ONE C PO ONE C PO IMMEDIATELY IMMEDIATEL AFTER Y AFTER INTERCOURSE INTERCOURS AND ONE C E AND ONE TID FOR 3 C TID FOR DAYS PRN 3 DAYS PRN ONSET OF ONSET OF UTI UTI SYMPTOMS SYMPTOMS Clune 7.5 No 1 Q7H Clune 7.5 mg-325 mg mg-325 mg tablet Take tablet 1 tablet Take 1 every 6-8 tablet hours by every 6-8 oral route hours by as needed. oral route as needed. cephalexin No cephalexin 250 mg 250 mg capsule capsule erythromyci No erythromyc n 250 mg in 250 mg tablet TK 1 tablet TK T PO D UTD 1 T PO D FOR URINARY UTD FOR TRACT URINARY INFECTION TRACT PREVENTION INFECTION PREVENTION hydrocodone No hydrocodon 7.5 e 7.5 mg-acetamin mg-acetami ophen 325 nophen 325 mg tablet mg tablet TK ONE T PO TK ONE T Q 6-8 HOURS PO Q 6-8 PRN HOURS PRN Premarin No Premarin 0.625 0.625 mg/gram mg/gram vaginal vaginal cream cream tizanidine No tizanidine 2 mg tablet 2 mg TK 1 T PO tablet TK TID 1 T PO TID bupropion No bupropion HCl 75 mg HCl 75 mg tablet TK 1 tablet TK T PO BID 1 T PO BID cefdinir No cefdinir 300 mg 300 mg capsule capsule cefuroxime No cefuroxime axetil 250 axetil 250 mg tablet mg tablet ciprofloxac No ciprofloxa in 500 mg kristina 500 mg tablet TK 1 tablet TK T PO Q 12 1 T PO Q HOURS FOR 7 12 HOURS DAYS FOR 7 DAYS ergocalcife No ergocalcif rol holger (vitamin (vitamin D2) 1,250 D2) 1,250 mcg (50,000 mcg unit) (50,000 capsule TK unit) 1 C PO Q WK capsule TK 1 C PO Q WK erythromyci No erythromyc n 500 mg in 500 mg tablet TK 1 tablet TK T PO D 1 T PO D hydrocodone No hydrocodon 5 e 5 mg-acetamin mg-acetami ophen 325 nophen 325 mg tablet mg tablet TK ONE T PO TK ONE T Q 6-8 HOURS PO Q 6-8 PRN FOR 5 HOURS PRN DAYS FOR 5 DAYS ketorolac No ketorolac 10 mg 10 mg tablet tablet nitrofurant No nitrofuran oin toin macrocrysta macrocryst l 50 mg al 50 mg capsule capsule nitrofurant No nitrofuran oin toin monohydrate monohydrat /macrocryst e/macrocry als 100 mg stals 100 capsule mg capsule meloxicam No meloxicam 15 mg 15 mg tablet tablet Clune 5 No 1 Q7H Clune 5 mg-325 mg mg-325 mg tablet Take tablet 1 tablet Take 1 every 6-8 tablet hours by every 6-8 oral route hours by as needed oral route for 5 days. as needed for 5 days. Pazeo 0.7 % No Pazeo 0.7 eye drops % eye INT 1 GTT drops INT INTO BOTH 1 GTT INTO EYES ONCE D BOTH EYES ONCE D ezetimibe No ezetimibe 10 mg 10 mg tablet Take tablet 1 tablet Take 1 every day tablet by oral every day route. by oral route. meclizine No meclizine 25 mg 25 mg tablet 1 tablet 1 tablet po tablet po prn prn ondansetron No ondansetro HCl 4 mg n HCl 4 mg tablet 1 tablet 1 tablet po tablet po prn prn Zanaflex 4 No 1 TID Zanaflex 4 mg tablet mg tablet Take 1 Take 1 tablet 3 tablet 3 times a day times a by oral day by route as oral route needed. as needed. chlorhexidi No chlorhexid ne ine gluconate gluconate 0.12 % 0.12 % mouthwash mouthwash clindamycin No clindamyci HCl 300 mg n HCl 300 capsule mg capsule Problems Condition Condition Condition Status Onset Resolution Last Treatin g Comments Name Details Category Date Date Treatment Clinician Date Panic Panic Problem Active attack Attack 05-10 00:00: 00 Posttraumat Posttraumat Problem Active ic stress ic Stress 05-10 disorder Disorder 00:00: 00 Gastroesoph Gastroesoph Problem Active ageal ageal 1- reflux Reflux 00:00: disease Disease 00 Hiatal Hiatal Problem Active hernia Hernia 131 00:00: 00 Irritable Irritable Problem Active bowel Bowel 131 syndrome Syndrome 00:00: 00 Osteoporosi Osteoporosi Problem Active s s 05-10 00:00: 00 Pain of Pain of Problem Active right ankle Right Ankle 05-02 joint Joint 00:00: 00 Pain in Pain in Problem Active right knee Right Knee 04-18 00:00: 00 Hypercholes Hypercholes Problem Active terolemia terolemia 12-26 00:00: 00 Neck pain Neck Pain Problem Active 12-26 00:00: 00 Posttraumat Posttraumat Problem Active 2017-04 ic stress ic Stress 0-12 disorder Disorder 00:00: 00 Irritable Irritable Problem Active 2017-04 bowel Bowel 0-12 syndrome Syndrome 00:00: 00 Urinary Urinary Problem Active 2017-04 tract Tract 0-12 infectious Infectious 00:00: disease Disease 00 Hand pain Hand Pain Problem Active 2017-04 0-12 00:00: 00 Not on file Not on file [id number] Procedures Procedure Date / Time Performed Performing Clinician Delia e XR, lumbar spine 2019-08-29 00:00:00 XR, knee 2019-08-28 00:00:00 XR, hip, unilateral 2019-08-28 00:00:00 XR, knee 2019-06-17 00:00:00 XR, knee 2019-05-27 00:00:00 XR, knee 2019-05-10 00:00:00 MRI, knee, w/o contrast 2019-05-02 00:00:00 MRI, ankle, w/o contrast 2019-05-02 00:00:00 RADIOLOGIC EXAM KNEE 3 VIEWS 2019-04-18 00:00:00 RADIOLOGIC EXAM SHOULDER 2 VIEWS 2018-12-26 00:00:00 XR, cervical spine 2018-12-26 00:00:00 OFFICE/OUTPATIENT VISIT [facility] 2018-10-08 10:00:00 OFFICE/OUTPATIENT VISIT, JIAN 2016-03-10 08:50:00 Breast Augmentation CARPAL TUNNEL SURGERY Stripping of Vein Hysterectomy Cholecystectomy APPENDECTOMY Colonoscopy Laser Ablation of Long Saphenous Vein Procedure on Vein Decompression of Ulnar Nerve Results This patient has no known results. Assessments Condition Name Status Diagnosis Date Treating Clinici an Sacroiliac joint pain Active 2019-10-10 11:33:09 Sacral back pain Active 2019-10-03 15:05:36 Low back pain Active 2019-08-29 11:16:49 Lumbar radiculopathy Active 2019-08-29 11:51:58 Knee pain Active 2019-08-28 10:13:13 Hip pain Active 2019-08-28 10:55:13 Pain in right knee Active 2019-08-26 11:08:02 Stiffness of right knee Active 2019-08-26 11:08:02 Difficulty walking 2019-08-26 11:08:02 Fracture of tibial plateau Active 2019-08-26 11:08:02 Pain in right knee Active 2019-08-22 09:52:23 Stiffness of right knee Active 2019-08-22 09:52:23 Difficulty walking 2019-08-22 09:52:23 Fracture of tibial plateau Active 2019-08-22 09:52:23 Pain in right knee Active 2019-08-20 08:40:36 Stiffness of right knee Active 2019-08-20 08:40:36 Difficulty walking 2019-08-20 08:40:36 Fracture of tibial plateau Active 2019-08-20 08:40:36 Pain in right knee Active 2019-08-15 09:18:38 Stiffness of right knee Active 2019-08-15 09:18:38 Difficulty walking 2019-08-15 09:18:38 Fracture of tibial plateau Active 2019-08-15 09:18:38 Pain in right knee Active 2019-08-13 10:46:53 Stiffness of right knee Active 2019-08-13 10:46:53 Difficulty walking 2019-08-13 10:46:53 Fracture of tibial plateau Active 2019-08-13 10:46:53 Pain in right knee Active 2019-08-07 11:38:50 Stiffness of right knee Active 2019-08-07 11:38:50 Difficulty walking 2019-08-07 11:38:50 Fracture of tibial plateau Active 2019-08-07 11:38:50 Pain in right knee Active 2019-08-05 14:58:24 Stiffness of right knee Active 2019-08-05 14:58:24 Difficulty walking Active 2019-08-05 14:58:24 Fracture of tibial plateau Active 2019-08-05 14:58:24 Pain in right knee Active 2019-07-30 11:48:27 Stiffness of right knee Active 2019-07-30 11:48:33 Difficulty walking Active 2019-07-30 11:48:38 Fracture of tibial plateau Active 2019-07-30 11:49:01 Closed fracture of tibial plateau Active 2019-07-22 10: 21:43 Knee pain Active 2019-06-17 09:03:03 Closed fracture proximal tibia, lateral Active 09:43:21 condyle (plateau) Knee pain Active 2019-05-27 10:19:39 Fracture of tibial plateau Active 2019-05-27 13:14:01 Pain in right knee Active 2019-05-10 09:38:25 Closed fracture of right tibial plateau Active 11:17:42 Pain in right knee Active 2019-05-02 15:07:48 Pain of right ankle joint Active 2019-05-02 16:52:15 Pain in right knee Active 2019-04-18 11:27:49 Contusion of right knee Active 2019-04-18 12:06:00 Neck pain Active 2018-12-26 10:03:52 Sprain of shoulder Active 2018-12-26 11:16:35 Shoulder pain Active 2018-12-26 10:52:37 Degeneration of cervical intervertebral Active 11:19:05 disc Arthropathy of cervical spine facet Active 2018-12-26 1 1:19:19 joint Chronic sinusitis, unspecified Active Chronic rhinitis Active Nicotine dependence, unspecified, Active uncomplicated Allergy status to penicillin Active Trichiasis without entropian left upper Active eyelid Other atrophic disorders of skin Active Mechanical ptosis of bilateral eyelids Active Dermatochalasis of right upper eyelid Active Encounters Start End Encounter Admission Attending Care Care Encounter Date/Time Date/Time Type Type Clinicians Facility Department ID 2020-02-19 2020-02-19 [facility] [id number] 00:00:00 00:00:00 2019-10-10 2019-10-10 Angela Harrell [facility], 92 [id number] 00:00:00 00:00:00 Miller wynne, P.A. P.A. [id number] ADRIENNE EvansC: [address] [facility] [address], [facility] [place] [address], Ph. 2019-10-03 2019-10-03 Angela BustosOrth [facility], 92 33_ 00:00:00 00:00:00 Miller wynne P.A. P.A. [id number] FRIDA Evans: [address] [facility], [place] [address], Ph. 2019-08-29 2019-08-29 Angela BustosOrth [facility], 92 [id number]_ 00:00:00 00:00:00 Miller wynne P.A. P.A. [id number] FRIDA Evans: [address] [facility], [address], [place] [address], Ph. 2019-08-28 2019-08-28 Matteo Escobar [facility], 9 [id number]_ 00:00:00 00:00:00 ricci Art P.A. P.A. [id number] MD: [address] [facility], [address], [place] [address], Ph. 2019-08-26 2019-08-26 Peyton BustosOrth [facility], 92 [id number]_ 00:00:00 00:00:00 ricci Torrez P.A. P.A. [id number] PT: [address] [facility], [address], [place] [address], Ph. 2019-08-22 2019-08-22 Peyton BustosOrth [facility], 92 333_ 00:00:00 00:00:00 ricci Torrez, P.A. P.A. [id number] PT: [address] [facility], [address], [place] [address], Ph. 2019-08-20 2019-08-20 Peyton BustosOrth [facility], 92 [id number] 00:00:00 00:00:00 ricci Torrez, P.A. P.A. [id number] PT: [address] [facility], [address], [place] [address], Ph. 2019-08-14 2019-08-14 Peyton BustosOrth [facility], 92 [id number]_ 00:00:00 00:00:00 ricci Torrez, P.A. P.A. [id number] PT: [address] [facility], [address], [place] [address], Ph. 2019-08-12 2019-08-12 Peyton BustosOrth [facility], 92 [id number]_ 00:00:00 00:00:00 ricci Torrez, P.A. P.A. [id number] PT: [address] [facility], [place] [address], Ph. 2019-08-07 2019-08-07 Peyton BustosOrth [facility], 92 [id number]_ 00:00:00 00:00:00 ricci Torrez, P.A. P.A. [id number] PT: [address] [facility], [place] [address], Ph. 2019-08-05 2019-08-05 Peyton BustosOrth [facility], 92 [id number]_ 00:00:00 00:00:00 ricci Torrez, P.A. P.A. [id number] PT: [address] [facility], [place] [address], Ph. 2019-07-30 2019-07-30 Peyton BustosOrth [facility], 92 [id number]_ 00:00:00 00:00:00 ricci Torrez, P.A. P.A. [id number] PT: [address] [facility], [place] [address], Ph. 2019-07-22 2019-07-22 Josue BustosOrth [facility], 92 [id number] 00:00:00 00:00:00 AMY Palmer o, P.A. P.A. [id number] PA-C: [address] [facility], [place] [address], Ph. 2019-06-17 2019-06-17 Ayan Harrell [facility] , [id number] 00:00:00 00:00:00 EZRA Trinidad: ricci P.A. P.A. [id number] [address] [facility] [address], [place] [address], Ph. 2019-05-27 2019-05-27 Ayan Harrell [facility] , [id number] 00:00:00 00:00:00 EZRA Trinidad: o, P.A. P.A. [id number] [address] [facility] [address], [place] [address], Ph. 2019-05-10 2019-05-10 John BustosOrth [facility], [id number] 00:00:00 00:00:00 MD Christen: o, P.A. P.A. 10927 [facility] [address], [place] [address], Ph. 2019-05-02 2019-05-02 Prema Raines [id number] 00:00:00 00:00:00 Jv, Surgical Surgical 0123 PAC: [address] [facility], [place] [address], Ph. 2019-04-18 2019-04-18 Matteo Raines [id number]_ [id number] 00:00:00 00:00:00 MD Jon: Surgical Surgical 0109 [address] [facility], [address], [place] [address], Ph. 2018-12-26 2018-12-26 Vlad Raines [id number] [id number] 00:00:00 00:00:00 DO Howard: Surgical Surgical 0918 [address] [facility], [address], [place] [address], Ph. 2018-10-08 2018-10-08 Outpatient Demarco Contreras [facility] [id number] 10:00:00 10:00:00 Children [id number] s [id number] [facility], 2016-03-10 2016-03-10 Outpatient Napoleon Ross FRANKEZRA Josecintia [id number] 08:50:00 08:50:00 [facility] [id number] Associates [id number] 2DF Immunizations Ordered Immunization Filled Immunization Date Status Commen ts Refusal Reason Name Name influenza, 2018-01-19 Completed injectable, 00:00:00 quadrivalent Plan of Treatment Planned Activity Planned Date Details Comments Future Scheduled Test [code = ] Future Scheduled Test [code = ] Future Scheduled Test [code = ] Future Scheduled Test [code = ] Future Scheduled Test [code = ] Future Scheduled Test [code = ] Future Scheduled Test [code = ] Social History Smoking Status Start Date Stop Date Current Every Day Smoker Heavy Tobacco Smoker Vital Signs Vital Name Observation Time Observation Value Comments Height 2019-10-10 00:00:00 68.5 [in_i] BMI (Body Mass Index) 2019-10-10 00:00:00 20.2 kg/m2 Body Weight 2019-10-10 00:00:00 135 [lb_av] Height 2019-10-03 00:00:00 68.5 [in_i] BMI (Body Mass Index) 2019-10-03 00:00:00 20.2 kg/m2 Body Weight 2019-10-03 00:00:00 135 [lb_av] Height 2019-08-29 00:00:00 68.5 [in_i] BMI (Body Mass Index) 2019-08-29 00:00:00 20.2 kg/m2 Body Weight 2019-08-29 00:00:00 135 [lb_av] Height 2019-08-29 00:00:00 68.5 [in_i] BMI (Body Mass Index) 2019-08-29 00:00:00 20.2 kg/m2 Body Weight 2019-08-29 00:00:00 135 [lb_av] Height 2019-08-28 00:00:00 68.5 [in_i] Height 2019-07-22 00:00:00 68.5 [in_i] BMI (Body Mass Index) 2019-07-22 00:00:00 20.2 kg/m2 Body Weight 2019-07-22 00:00:00 135 [lb_av] Height 2019-06-17 00:00:00 68.5 [in_i] BMI (Body Mass Index) 2019-06-17 00:00:00 20.2 kg/m2 Body Weight 2019-06-17 00:00:00 135 [lb_av] Height 2019-05-27 00:00:00 68.5 [in_i] BMI (Body Mass Index) 2019-05-27 00:00:00 20.2 kg/m2 Body Weight 2019-05-27 00:00:00 135 [lb_av] Height 2019-05-10 00:00:00 68.5 [in_i] BMI (Body Mass Index) 2019-05-10 00:00:00 20.1 kg/m2 Body Weight 2019-05-10 00:00:00 134 [lb_av] BP Diastolic 2019-05-02 00:00:00 78 mm[Hg] Height 2019-05-02 00:00:00 68 [in_i] BMI (Body Mass Index) 2019-05-02 00:00:00 19.9 kg/m2 BP Systolic 2019-05-02 00:00:00 112 mm[Hg] Body Weight 2019-05-02 00:00:00 131 [lb_av] BP Diastolic 2019-04-18 00:00:00 62 mm[Hg] Height 2019-04-18 00:00:00 68 [in_i] BMI (Body Mass Index) 2019-04-18 00:00:00 19.9 kg/m2 BP Systolic 2019-04-18 00:00:00 112 mm[Hg] Body Weight 2019-04-18 00:00:00 131 [lb_av] BP Diastolic 2018-12-26 00:00:00 61 mm[Hg] Height 2018-12-26 00:00:00 68 [in_i] BMI (Body Mass Index) 2018-12-26 00:00:00 19.9 kg/m2 BP Systolic 2018-12-26 00:00:00 115 mm[Hg] Body Weight 2018-12-26 00:00:00 131 [lb_av] Hospital Discharge Instructions 1. Sacral back pain Discussion Note: None recorded. Patient educational handouts: No information available.1. Closed fracture of tibial plateau physical therapy knee referral Discussion Note: None recorded. Patient educational handouts: No information available.1. Pain in right knee XR, knee tramadol 50 mg tablet 2. Closed fracture of right tibial plateau Discussion Note: None recorded. Patient educational handouts: No information available.1. Pain in right knee XR, knee, 3 view 2. Contusion of right knee Discussion Note f/u 2 weeks MRI if no better Patient educational handouts: No information available.1. Neck pain XR, cervical spine 2. Shoulder pain XR, shoulder 3. Sprain of shoulder 4. Degeneration of cervical intervertebral disc 5. Arthropathy of cervical spine facet joint Pain Cream Option [facility] Zanaflex 4 mg tablet Discussion Note: None recorded. Patient educational handouts: No information available.
== END ==
LOC: RDC 09:08
PROVIDERS: ATTEND Nurse Practitioner Family
DX: Z20.828 Contact with and (suspected) exposure to other viral communicable diseases (principal); R50.9 Fever, unspecified; R51.9 Headache, unspecified; F43.10 Post-traumatic stress disorder, unspecified; F41.0 Panic disorder [episodic paroxysmal anxiety]; F17.200 Nicotine dependence, unspecified, uncomplicated; Z88.1 Allergy status to other antibiotic agents; Z88.6 Allergy status to analgesic agent
CPT/HCPCS: 87804; 99201; U0003; G0463; C9803; 87635; 99211

== ENCOUNTER 2020-03-28 00:36 | Emergency (ER) | payer MEDICARE ==
[2020-03-28 00:56] VITALS: BP 126/84
== END 2020-03-28 00:58 | disposition left against medical advice (07) ==
LOC: ER 00:36
DX: Z53.21 Procedure and treatment not carried out due to patient leaving prior to being seen by health care provider (principal)

== ENCOUNTER 2020-03-28 12:43 | Emergency (ER) | payer MEDICARE ==
[2020-03-28] MEDS ORDERED: RINGERS SOLUTION,LACTATED 1,000 ML IV ONE (13:39)
[2020-03-28] MEDS ORDERED: KETOROLAC TROMETHAMINE INJ/PF 30 MG/1 ML SDV IV ONE (13:40)
--- NOTE | 2020-03-28 13:43 | ER Document Report ---
ED Medical Screen (RME) - General Chief Complaint: Nausea/Vomiting Stated Complaint: NAUSEA Time Seen by Provider: 03/28/20 13:34 Primary Care Provider: NIK COLES [Primary Care Provider] - Follow up as needed Mode of Arrival: Ambulatory Information source: Patient Notes: Patient is a 64-year-old female comes emergency room complaining of continuous vomiting. Patient states that she has a history of vomiting migraines and she started with one yesterday. She usually takes for that Zofran and Ultram for the headache but it does not seem to be working this time. She has been vomiting nonstop since yesterday. States that anything she places in her mouth with food or fluid comes right back up again. The headache is her normal presentation of migraine but it is just more intense. She denies any diarrhea or fever. She has had no shortness of breath or dysuria. Patient states she took Zofran 1 hour prior to arrival and that has subsided her vomiting slightly and is requesting some Toradol for her headache. Patient's vital signs show a temp of 97.6, saturation 97% on room air, heart rate of 89 bpm respiratory rate of 16 blood pressure 115/86. Patient is a frail-appearing 64-year-old female no apparent distress on examination. Cardiac showed a regular rate and rhythm on monitor with no murmurs auscultated. Lungs: Bilateral breath sounds with breath sounds increased no rhonchi rales or wheeze auscultated. Abdomen: Bowel sounds are present all 4 quads nontender to palpate. Neuro: Patient is awake alert and oriented x4 no neuro deficits elicited on a quick neuro exam in triage. I have greeted and performed a rapid initial assessment of this patient. A comprehensive ED assessment and evaluation of the patient, analysis of test results and completion of the medical decision making process will be conducted by additional ED providers. Dictation of this chart was performed using voice recognition software; therefore, there may be some unintended grammatical errors. TRAVEL OUTSIDE OF THE [place] IN LAST 30 DAYS: No - Related Data Allergies/Adverse Reactions: amoxicillin [From Augmentin] Allergy (Verified 03/28/20 13:34) SHORTNESS OF BREATH, RASH ON HANDS cephalexin [From Keflex] Allergy (Verified 03/28/20 13:34) LIPS SWELL clavulanic acid [From Augmentin] Allergy (Verified 03/28/20 13:34) SHORTNESS OF BREATH, RASH ON HANDS codeine Allergy (Verified 03/28/20 13:34) AGRESSIVE BEHAVIOR meperidine [From Demerol] Allergy (Verified 03/28/20 13:34) WHELTS Penicillins Allergy (Verified 03/28/20 13:34) Anaphylaxis rosuvastatin [From Crestor] Allergy (Verified 03/28/20 13:34) Shortness of Breath Sulfa (Sulfonamide Antibiotics) Allergy (Verified 03/28/20 13:34) Lips swelled tetracycline Allergy (Verified 03/28/20 13:34) LIPS,RASH BETA BLOCKERS Allergy (Unknown, Uncoded 03/28/20 13:34) HYPOTENSION, DEPRESSION IVP DYE Allergy (Uncoded 03/28/20 13:34) Anaphylaxis Past Medical History - Past Medical History Cardiac Medical History: Denies: Hx Coronary Artery Disease, Hx Heart Attack, Hx Hypertension Pulmonary Medical History: Reports: Hx Pneumonia - AGE 7 Denies: Hx Asthma, Hx Bronchitis, Hx COPD Neurological Medical History: Reports: Hx Migraine. Denies: Hx Cerebrovascular Accident, Hx Seizures Renal/ Medical History: Denies: Hx Peritoneal Dialysis GI Medical History: Reports: Hx Gastroesophageal Reflux Disease, Hx Hiatal Hernia Musculoskeltal Medical History: Reports Hx Arthritis - RIGHT KNEE, BILATERAL KNUCKLES Psychiatric Medical History: Reports: Hx Post Traumatic Stress Disorder Past Surgical History: Reports: Hx Appendectomy, Hx Breast Surgery - augmentation, Hx Cholecystectomy, Hx Hysterectomy, Hx Vascular Surgery - vein ablation - Immunizations Hx Diphtheria, Pertussis, Tetanus Vaccination: Yes Physical Exam - Vital signs Vitals: Temp Pulse Resp BP Pulse Ox 97.6 F 90 16 115/80 98 03/28/20 12:53 03/28/20 12:53 03/28/20 12:53 03/28/20 12:53 03/28/20 12:53 Course - Vital Signs Vital signs: Temp Pulse Resp BP Pulse Ox 97.6 F 90 16 115/80 98 03/28/20 12:53 03/28/20 12:53 03/28/20 12:53 03/28/20 12:53 03/28/20 12:53 Doctor's Discharge - Discharge Referrals: LOCALMD,NO [Primary Care Provider] - Follow up as needed
[2020-03-28 14:55] LABS: ABSOLUTE LYMPHOCYTES (AUTO) 0.8 10^3/uL (0.5-4.7); ABSOLUTE MONOCYTES (AUTO) 0.5 10^3/uL (0.1-1.4); ABSOLUTE NEUT (AUTO) 5.3 10^3/uL (1.7-8.2); BASOPHILS % (AUTO) 0.4 % (0-2); EOSINOPHILS % (AUTO) 0.7 % (0-6); HEMATOCRIT 41.7 % (36.0-47.0); LYMPHOCYTES % (AUTO) 12.6 % (13-45); MEAN CORPUSCULAR HEMOGLOBIN 30.4 pg (27.0-33.4); MEAN CORPUSCULAR HGB CONC 33.6 g/dL (32.0-36.0); MEAN CORPUSCULAR VOLUME 91 fl (80-97); MONOCYTES % (AUTO) 7.7 % (3-13); PLATELET COUNT 328 10^3/uL (150-450); RED BLOOD COUNT 4.61 10^6/uL (3.72-5.28); RED CELL DISTRIBUTION WIDTH 13.6 % (11.5-14.0); SEGMENTED NEUTROPHILS % (AUTO) 78.6 % (42-78); TOTAL CELLS COUNTED % (AUTO) 100 %; WHITE BLOOD COUNT 6.7 10^3/uL (4.0-10.5)
[2020-03-28 14:58] LABS: APPEARANCE,URINE CLEAR; BILIRUBIN,URINE NEGATIVE (NEGATIVE); COLOR,URINE YELLOW; GLUCOSE, URINE NEGATIVE (NEGATIVE); KETONES,URINE NEGATIVE (NEGATIVE); LEUKOCYTE ESTERASE,URINE NEGATIVE (NEGATIVE); NITRITE,URINE NEGATIVE (NEGATIVE); PROTEIN,URINE NEGATIVE (NEGATIVE); URINE SPECIFIC GRAVITY 1.008; UROBILINOGEN,URINE NEGATIVE mg/dL (<2.0)
[2020-03-28 15:30] LABS: ALBUMIN 4.4 g/dL (3.5-5.0); ALKALINE PHOSPHATASE 103 U/L (38-126); ANION GAP 8 (5-19); ASPARTATE AMINO TRANSFERASE 36 U/L (14-36); BILIRUBIN,DIRECT 0.1 mg/dL (0.0-0.4); BILIRUBIN,TOTAL 0.6 mg/dL (0.2-1.3); BLOOD UREA NITROGEN 9 mg/dL (7-20); CALCIUM 9.6 mg/dL (8.4-10.2); CARBON DIOXIDE 27 mmol/L (22-30); CHLORIDE 100 mmol/L (98-107); GLUCOSE 96 mg/dL (75-110); POTASSIUM 4.8 mmol/L (3.6-5.0); TOTAL PROTEIN 7.1 g/dL (6.3-8.2)
--- NOTE | 2020-03-28 15:41 | ER Document Report ---
ED Headache - General Chief Complaint: Headache Stated Complaint: NAUSEA Time Seen by Provider: 03/28/20 13:34 Primary Care Provider: NIK COLES [Primary Care Provider] - Follow up as needed Mode of Arrival: Ambulatory Information source: Patient Notes: I originally saw patient in triage and started her work-up. Gave her fluids and patient responded well. See below Patient is a 64-year-old female comes emergency room complaining of continuous vomiting. Patient states that she has a history of vomiting migraines and she started with one yesterday. She usually takes for that Zofran and Ultram for the headache but it does not seem to be working this time. She has been vomiting nonstop since yesterday. States that anything she places in her mouth with food or fluid comes right back up again. The headache is her normal presentation of migraine but it is just more intense. She denies any diarrhea or fever. She has had no shortness of breath or dysuria. Patient states she took Zofran 1 hour prior to arrival and that has subsided her vomiting slightly and is requesting some Toradol for her headache. Patient's vital signs show a temp of 97.6, saturation 97% on room air, heart rate of 89 bpm respiratory rate of 16 blood pressure 115/86. TRAVEL OUTSIDE OF THE [place] IN LAST 30 DAYS: No - HPI Patient complains to provider of: Headache, "Migraine" Patient reports: Frequent migraines, Hx chronic headaches Onset: Yesterday Onset was: Gradual Timing: Still present Quality of pain: Throbbing Severity: Moderate Pain Level: 3 Context: denies: Head injury, Meningitis exposure Preceding symptoms: denies: Visual disturbance Associated symptoms: Chills, Dizzy, Nausea/vomiting. denies: Fever, Lightheaded, Memory loss, Stiff neck, Trouble walking Similar symptoms previously: Yes Recently seen / treated by doctor: Yes - Related Data Allergies/Adverse Reactions: amoxicillin [From Augmentin] Allergy (Verified 03/28/20 13:34) SHORTNESS OF BREATH, RASH ON HANDS cephalexin [From Keflex] Allergy (Verified 03/28/20 13:34) LIPS SWELL clavulanic acid [From Augmentin] Allergy (Verified 03/28/20 13:34) SHORTNESS OF BREATH, RASH ON HANDS codeine Allergy (Verified 03/28/20 13:34) AGRESSIVE BEHAVIOR meperidine [From Demerol] Allergy (Verified 03/28/20 13:34) WHELTS Penicillins Allergy (Verified 03/28/20 13:34) Anaphylaxis rosuvastatin [From Crestor] Allergy (Verified 03/28/20 13:34) Shortness of Breath Sulfa (Sulfonamide Antibiotics) Allergy (Verified 03/28/20 13:34) Lips swelled tetracycline Allergy (Verified 03/28/20 13:34) LIPS,RASH BETA BLOCKERS Allergy (Unknown, Uncoded 03/28/20 13:34) HYPOTENSION, DEPRESSION IVP DYE Allergy (Uncoded 03/28/20 13:34) Anaphylaxis Past Medical History - General Information source: Patient - Social History Smoking Status: Current Every Day Smoker Cigarette use (# per day): Yes - Half pack Chew tobacco use (# tins/day): No Smoking Education Provided: No Frequency of alcohol use: None Drug Abuse: None Lives with: Family, Spouse/Significant other Family History: Reviewed & Not Pertinent - Past Medical History Cardiac Medical History: Denies: Hx Coronary Artery Disease, Hx Heart Attack, Hx Hypertension Pulmonary Medical History: Reports: Hx Pneumonia - AGE 7 Denies: Hx Asthma, Hx Bronchitis, Hx COPD Neurological Medical History: Reports: Hx Migraine. Denies: Hx Cerebrovascular Accident, Hx Seizures Renal/ Medical History: Denies: Hx Peritoneal Dialysis GI Medical History: Reports: Hx Gastroesophageal Reflux Disease, Hx Hiatal Hernia Musculoskeletal Medical History: Reports Hx Arthritis - RIGHT KNEE, BILATERAL KNUCKLES Psychiatric Medical History: Reports: Hx Post Traumatic Stress Disorder Past Surgical History: Reports: Hx Appendectomy, Hx Breast Surgery - augmentation, Hx Cholecystectomy, Hx Hysterectomy, Hx Vascular Surgery - vein ablation - Immunizations Hx Diphtheria, Pertussis, Tetanus Vaccination: Yes Review of Systems - Review of Systems Constitutional: See HPI, Weakness EENT: No symptoms reported Cardiovascular: No symptoms reported Respiratory: No symptoms reported Gastrointestinal: No symptoms reported Genitourinary: No symptoms reported Female Genitourinary: No symptoms reported Musculoskeletal: No symptoms reported Skin: No symptoms reported Hematologic/Lymphatic: No symptoms reported Neurological/Psychological: See HPI, Headaches -: Yes All other systems reviewed and negative Physical Exam - Vital signs Vitals: Temp Pulse Resp BP Pulse Ox 97.6 F 90 16 115/80 98 03/28/20 12:53 03/28/20 12:53 03/28/20 12:53 03/28/20 12:53 03/28/20 12:53 Interpretation: Normal - Notes Notes: PHYSICAL EXAMINATION: GENERAL: Patient is a frail-appearing 64-year-old female who is in no apparent distress but appears uncomfortable. HEAD: Atraumatic, normocephalic. EYES: Pupils equal round and reactive to light, extraocular movements intact, conjunctiva are normal. ENT: Examination head and upper airway show nasal mucosa be moderately dry no nasal congestion is noted bilateral TMs are normal in appearance. Posterior pharynx is normal with no encroachment upon the uvula no erythema noted oral mucosa is moderately dry as well as the tongue but no fissuring noted. NECK: Normal range of motion, supple without lymphadenopathy LUNGS: Breath sounds clear to auscultation bilaterally and equal. No wheezes rales or rhonchi. HEART: Regular rate and rhythm without murmurs ABDOMEN: Soft, nontender, nondistended abdomen. No guarding, no rebound. No masses appreciated. Female : deferred Musculoskeletal: Normal range of motion, no pitting or edema. No cyanosis. NEUROLOGICAL: Cranial nerves grossly intact. Normal speech, normal gait. Normal sensory, motor exams patient's NIH score is 0. PSYCH: Normal mood, normal affect. SKIN: Warm, Dry, normal turgor, no rashes or lesions noted. Course - Re-evaluation Re-evalutation: 03/28/20 15:52 As stated I saw patient in triage and started on fluids and jerry labs. Her labs came back normal. 1 L of fluid perked patient right up and she feels much better. Headache is nearly gone and she is requesting to be discharged. Given that these headaches or her normal presentation with just slightly more intensity with some intractable vomiting until such time as she could keep Zofran down and get fluids which brought her to the ER. At this time I feel it safe to send patient home. She understands she can return to ER if she has any concerns or problems. - Vital Signs Vital signs: Temp Pulse Resp BP Pulse Ox 97.6 F 90 16 115/80 98 03/28/20 12:53 03/28/20 12:53 03/28/20 12:53 03/28/20 12:53 03/28/20 12:53 - Laboratory Results Result Diagrams: 03/28/20 13:39 03/28/20 14:15 Laboratory Results Interpreted: 03/28/20 03/28/20 03/28/20 13:39 14:15 14:25 Lymph % (Auto) 12.6 L Seg Neutrophils % 78.6 H Sodium 134.6 L Urine Blood SMALL H Critical Laboratory Results Reviewed: No Critical Results - Radiology Results Critical Radiology Results Reviewed: No Critical Results Discharge - Discharge Clinical Impression: Migraine headache Qualifiers: Migraine type: unspecified Status migrainosus presence: without status migrainosus Intractability: not intractable Qualified Code(s): G43.909 - Migrai ne, unspecified, not intractable, without status migrainosus Condition: Stable Disposition: HOME, SELF-CARE Instructions: Headache ([facility]), Toradol Injection ([facility]) Additional Instructions: Home and rest. Continue with your Zofran every 4-6 hours to keep the nausea at bay. Push fluids but avoid anything milk or dairy which causes increased secretions. Should you have increasing headache or have any other concerns or problems you can return to ER for reevaluation. Highly suggest follow-up with your primary care provider within the next 3 to 4 days for reevaluation and continuation of care. Forms: Smoking Cessation Education Referrals: LOCAL,NO [Primary Care Provider] - Follow up as needed
[2020-03-28 16:17] VITALS: BP 114/71
== END 2020-03-28 15:57 | disposition home or self-care (01) ==
LOC: ER 12:43
DX: G43.909 Migraine, unspecified, not intractable, without status migrainosus (principal); R11.2 Nausea with vomiting, unspecified; R42 Dizziness and giddiness; R68.83 Chills (without fever); F17.210 Nicotine dependence, cigarettes, uncomplicated; R53.1 Weakness; Z88.0 Allergy status to penicillin; Z88.1 Allergy status to other antibiotic agents; Z88.6 Allergy status to analgesic agent; Z88.5 Allergy status to narcotic agent; Z88.8 Allergy status to other drugs, medicaments and biological substances; Z88.2 Allergy status to sulfonamides; Z87.892 Personal history of anaphylaxis; Z91.041 Radiographic dye allergy status
CPT/HCPCS: 99284; 96361; 96374; 36415; 87086; 85025; 87088; 80053; 81001; 87186; J1885; J7120